=== PATIENT | female | born 1935 | race Caucasian/White ===

== ENCOUNTER 2017-07-04 16:59 | Emergency (ER) | payer BC | END 2017-07-04 20:50 | disposition home or self-care (01) | LOC: FTE 16:59 | DX: S46.912A Strain of unspecified muscle, fascia and tendon at shoulder and upper arm level, left arm, initial encounter (principal); X58.XXXA Exposure to other specified factors, initial encounter; Y92.9 Unspecified place or not applicable; Z79.01 Long term (current) use of anticoagulants | CPT/HCPCS: 99282 ==

== ENCOUNTER 2017-11-02 13:24 | Emergency (ER) | payer BC | END 2017-11-02 14:41 | disposition home or self-care (01) | LOC: E/R 13:24 | DX: M54.5 Low back pain (principal); Z79.01 Long term (current) use of anticoagulants | CPT/HCPCS: 72100; 99283-25 ==

== ENCOUNTER 2017-12-16 12:40 | Inpatient (IN) | payer BC ==
[2017-12-16] MEDS ORDERED: morphine 4 MG/ML VIAL IV (13:37)
[2017-12-16 13:49] LABS: ADD MAN DIFF? NO
[2017-12-16] MEDS: ONDANSETRON 4 MG INJ IV (13:50)
[2017-12-16] MEDS: HYDROmorphONE 0.5 MG/0.5 ML SYG IV (13:50)
[2017-12-16 13:55] LABS: WHITE BLOOD COUNT 12.7 10^3/ul (4.8-10.8)
[2017-12-16 13:55] LABS: BASOPHIL # 0.1 10^3/ul (0.0-0.1); BASOPHILS % 0.6 % (0.0-2.0); EOSINOPHILS # 0.1 10^3/ul (0.0-0.5); EOSINOPHILS % 0.6 % (0.0-7.0); HEMATOCRIT 35.9 % (37.0-47.0); HEMOGLOBIN 11.7 g/dl (12.0-16.0); LYMPHOCYTES # 1.4 10^3/ul (0.8-2.9); LYMPHOCYTES % 10.9 % (15.0-51.0); MEAN CORPUSCULAR HEMOGLOBIN 31.7 pg (29.0-33.0); MEAN CORPUSCULAR HGB CONC 32.6 g/dl (32.0-37.0); MEAN CORPUSCULAR VOLUME 97.3 fl (82.0-101.0); MEAN PLATELET VOLUME 10.2 fl (7.4-10.4); MONOCYTE # 1.1 10^3/ul (0.3-0.9); MONOCYTES % 8.7 % (0.0-11.0); NEUTROPHILS % 78.7 % (39.0-77.0); PLATELET COUNT 263 10^3/UL (140-415); RED BLOOD COUNT 3.69 10^6/ul (4.20-5.40); RED CELL DISTRIBUTION WIDTH 13.2 % (11.5-14.5)
[2017-12-16 14:11] LABS: ANION GAP 12 (8-16); BLOOD UREA NITROGEN 23 mg/dl (7-20); CALCIUM 8.7 mg/dl (8.4-10.2); CARBON DIOXIDE 27 mmol/L (21-31); CHLORIDE 101 mmol/L (97-110); CREATININE 0.62 mg/dl (0.44-1.00); GLUCOSE 118 mg/dl (70-220); POTASSIUM 3.8 mmol/L (3.5-5.1); SODIUM 136 mmol/L (135-144)
[2017-12-16] MEDS: DILTIAZEM 25 MG INJ IV (14:13)
[2017-12-16 14:23] LABS: TROPONIN-I < 0.010 ng/ml (0.000-0.120)
[2017-12-16] MEDS ORDERED: ONDANSETRON 4 MG INJ IV (14:30)
[2017-12-16] MEDS ORDERED: ACETAMINOPHEN 325 MG TAB PO ×2 (14:30→18:00)
[2017-12-16] MEDS ORDERED: DILTIAZEM 25 MG INJ IV (18:00)
[2017-12-16] MEDS ORDERED: morphine 2 MG INJ IV (18:00)
[2017-12-16 19:03] LABS: CREATINE KINASE 708 IU/L (23-200)
[2017-12-16 19:05] LABS: INR 1.96; PROTIME 22.8 Sec (11.9-14.9); PT RATIO 1.8
[2017-12-16 19:16] LABS: CK INDEX 0.9; CK-MB 6.29 ng/ml (0.0-2.4); TROPONIN-I < 0.010 ng/ml (0.000-0.120)
[2017-12-17 01:44] LABS: CREATINE KINASE 396 IU/L (23-200)
[2017-12-17 01:56] LABS: CK-MB 3.88 ng/ml (0.0-2.4); TROPONIN-I < 0.010 ng/ml (0.000-0.120)
[2017-12-17 07:28] LABS: ADD MAN DIFF? NO
[2017-12-17 07:35] LABS: WHITE BLOOD COUNT 10.7 10^3/ul (4.8-10.8)
[2017-12-17 07:35] LABS: BASOPHILS % 0.4 % (0.0-2.0); EOSINOPHILS # 0.2 10^3/ul (0.0-0.5); HEMATOCRIT 33.3 % (37.0-47.0); HEMOGLOBIN 10.6 g/dl (12.0-16.0); LYMPHOCYTES # 1.6 10^3/ul (0.8-2.9); LYMPHOCYTES % 14.7 % (15.0-51.0); MEAN CORPUSCULAR HEMOGLOBIN 31.2 pg (29.0-33.0); MEAN CORPUSCULAR HGB CONC 31.8 g/dl (32.0-37.0); MEAN CORPUSCULAR VOLUME 97.9 fl (82.0-101.0); MEAN PLATELET VOLUME 10.3 fl (7.4-10.4); MONOCYTES % 9.5 % (0.0-11.0); NEUTROPHIL # 7.8 10^3/ul (1.6-7.5); NEUTROPHILS % 72.9 % (39.0-77.0); PLATELET COUNT 278 10^3/UL (140-415); RED CELL DISTRIBUTION WIDTH 13.3 % (11.5-14.5)
[2017-12-17 07:51] LABS: ANION GAP 8 (8-16); BLOOD UREA NITROGEN 20 mg/dl (7-20); CALCIUM 8.3 mg/dl (8.4-10.2); CARBON DIOXIDE 29 mmol/L (21-31); CHLORIDE 102 mmol/L (97-110); CREATININE 0.56 mg/dl (0.44-1.00); GLUCOSE 120 mg/dl (70-220); POTASSIUM 4.4 mmol/L (3.5-5.1); SODIUM 135 mmol/L (135-144)
[2017-12-17 08:01] LABS: INR 2.14; PROTIME 24.4 Sec (11.9-14.9); PT RATIO 1.9
[2017-12-17 08:02] LABS: PARTIAL THROMBOPLASTIN TIME 42.6 Sec (25.0-35.0)
[2017-12-17 08:51] LABS: THYROID STIMULATING HORMONE 0.527 MIU/L (0.465-4.680)
[2017-12-17] MEDS ORDERED: DILTIAZEM (CD) 240 MG CAP PO (09:00)
[2017-12-17] MEDS: ESTRADIOL 1 MG TAB PO (09:04)
[2017-12-17] MEDS: DILTIAZEM (CD) 240 MG CAP PO (09:05)
[2017-12-17] MEDS: DIAZEPAM 5 MG TAB PO (09:05)
[2017-12-17] MEDS: WARFARIN 3 MG TAB PO (17:11)
[2017-12-17] MEDS: DILTIAZEM (CD) 120 MG CAP PO (20:39)
[2017-12-17] MEDS: [UNRECOGNIZED DRUG - OTHER] BOTH EYES (23:11)
[2017-12-17] MEDS: TIMOLOL 0.5% BOTH EYES (23:11)
[2017-12-17] MEDS: DORZOLAMIDE BOTH EYES (23:11)
[2017-12-18 08:03] LABS: ADD MAN DIFF? NO
[2017-12-18 08:05] LABS: BASOPHILS % 0.3 % (0.0-2.0); EOSINOPHILS # 0.1 10^3/ul (0.0-0.5); EOSINOPHILS % 0.6 % (0.0-7.0); HEMATOCRIT 35.3 % (37.0-47.0); HEMOGLOBIN 11.1 g/dl (12.0-16.0); LYMPHOCYTES % 8.6 % (15.0-51.0); MEAN CORPUSCULAR HEMOGLOBIN 30.4 pg (29.0-33.0); MEAN CORPUSCULAR HGB CONC 31.4 g/dl (32.0-37.0); MEAN CORPUSCULAR VOLUME 96.7 fl (82.0-101.0); MEAN PLATELET VOLUME 11.5 fl (7.4-10.4); MONOCYTE # 1.3 10^3/ul (0.3-0.9); MONOCYTES % 10.8 % (0.0-11.0); NEUTROPHIL # 9.4 10^3/ul (1.6-7.5); NEUTROPHILS % 79.2 % (39.0-77.0); PLATELET COUNT 232 10^3/UL (140-415); RED BLOOD COUNT 3.65 10^6/ul (4.20-5.40); RED CELL DISTRIBUTION WIDTH 13.1 % (11.5-14.5)
[2017-12-18 08:05] LABS: WHITE BLOOD COUNT 11.9 10^3/ul (4.8-10.8)
[2017-12-18 08:25] LABS: INR 1.93; IRON 12 ug/dl (35-150); PROTIME 22.5 Sec (11.9-14.9); PT RATIO 1.8
[2017-12-18 08:29] LABS: ALANINE AMINOTRANSFERASE 36 IU/L (13-69); ALKALINE PHOSPHATASE 83 IU/L (42-121); ANION GAP 11 (8-16); ASPARTATE AMINO TRANSFERASE 31 IU/L (15-46); BILIRUBIN,INDIRECT 0.8 mg/dl (0-1.1); BILIRUBIN,TOTAL 0.8 mg/dl (0.2-1.3); BLOOD UREA NITROGEN 15 mg/dl (7-20); CALCIUM 8.3 mg/dl (8.4-10.2); CARBON DIOXIDE 31 mmol/L (21-31); CHLORIDE 98 mmol/L (97-110); CREATININE 0.57 mg/dl (0.44-1.00); GLUCOSE 119 mg/dl (70-220); POTASSIUM 4.5 mmol/L (3.5-5.1); SODIUM 135 mmol/L (135-144); TOTAL PROTEIN 6.3 g/dl (6.1-8.1)
[2017-12-18 08:35] LABS: % IRON SATURATION 5 % SAT (22-52); TOTAL IRON BINDING CAPACITY 259 ug/dl (241-421)
[2017-12-18] MEDS: DORZOLAMIDE BOTH EYES ×2 (08:57→20:53)
[2017-12-18] MEDS: TIMOLOL 0.5% BOTH EYES ×2 (08:57→20:53)
[2017-12-18] MEDS: [UNRECOGNIZED DRUG - OTHER] BOTH EYES ×2 (08:57→20:53)
[2017-12-18] MEDS: DEXAMETHASONE 0.1% 5 ML OPH RIGHT EYE ×2 (09:00→20:53)
[2017-12-18] MEDS ORDERED: DORZOLAMIDE/TIMOLOL/PF 0.2 ML DROPERETTE BOTH EYES ×2 (09:00)
[2017-12-18] MEDS ORDERED: PREDNISOLONE ACET 0.12% 5 ML OPH RIGHT EYE (09:00)
[2017-12-18] MEDS: DILTIAZEM (CD) 240 MG CAP PO (09:07)
[2017-12-18] MEDS: ESTRADIOL 1 MG TAB PO (09:07)
[2017-12-18 16:27] LABS: FOLATE > 20.0 ng/ml (2.8-20.0)
[2017-12-18] MEDS: WARFARIN 2 MG TAB PO (17:29)
[2017-12-18] MEDS: DIAZEPAM 5 MG TAB PO (20:51)
[2017-12-18] MEDS: DILTIAZEM (CD) 120 MG CAP PO (20:52)
[2017-12-18] MEDS ORDERED: LATANOPROST 0.005% 2.5 ML OPH LEFT EYE (21:00)
[2017-12-19 08:10] LABS: ADD MAN DIFF? NO
[2017-12-19 08:14] LABS: BASOPHIL # 0.1 10^3/ul (0.0-0.1); BASOPHILS % 0.4 % (0.0-2.0); EOSINOPHILS # 0.2 10^3/ul (0.0-0.5); EOSINOPHILS % 1.2 % (0.0-7.0); HEMATOCRIT 35.7 % (37.0-47.0); HEMOGLOBIN 11.4 g/dl (12.0-16.0); LYMPHOCYTES # 1.1 10^3/ul (0.8-2.9); MEAN CORPUSCULAR HEMOGLOBIN 30.8 pg (29.0-33.0); MEAN CORPUSCULAR HGB CONC 31.9 g/dl (32.0-37.0); MEAN CORPUSCULAR VOLUME 96.5 fl (82.0-101.0); MEAN PLATELET VOLUME 10.4 fl (7.4-10.4); MONOCYTE # 1.4 10^3/ul (0.3-0.9); NEUTROPHIL # 11.1 10^3/ul (1.6-7.5); NEUTROPHILS % 79.5 % (39.0-77.0); PLATELET COUNT 325 10^3/UL (140-415); RED CELL DISTRIBUTION WIDTH 12.8 % (11.5-14.5)
[2017-12-19 08:14] LABS: WHITE BLOOD COUNT 13.9 10^3/ul (4.8-10.8)
[2017-12-19 08:31] LABS: ANION GAP 9 (8-16); BLOOD UREA NITROGEN 17 mg/dl (7-20); CALCIUM 8.2 mg/dl (8.4-10.2); CARBON DIOXIDE 32 mmol/L (21-31); CHLORIDE 97 mmol/L (97-110); CREATININE 0.64 mg/dl (0.44-1.00); GLUCOSE 123 mg/dl (70-220); POTASSIUM 4.1 mmol/L (3.5-5.1); SODIUM 134 mmol/L (135-144)
[2017-12-19 08:33] LABS: INR 2.39; PROTIME 26.7 Sec (11.9-14.9); PT RATIO 2.1
[2017-12-19] MEDS: ESTRADIOL 1 MG TAB PO (08:47)
[2017-12-19] MEDS: DILTIAZEM (CD) 240 MG CAP PO (08:49)
[2017-12-19] MEDS: [UNRECOGNIZED DRUG - OTHER] BOTH EYES ×2 (08:50→21:12)
[2017-12-19] MEDS: TIMOLOL 0.5% BOTH EYES ×2 (08:50→21:12)
[2017-12-19] MEDS: DORZOLAMIDE BOTH EYES ×2 (08:50→21:12)
[2017-12-19] MEDS: DEXAMETHASONE 0.1% 5 ML OPH RIGHT EYE ×2 (08:57→21:12)
[2017-12-19] MEDS: CEFTRIAXONE 1 GM/50 ML (PMX) 50 ML IVPB (16:21)
[2017-12-19] MEDS: D5W-0.45 NACL + KCL 10 MEQ 1,000 ML IV (16:21)
[2017-12-19] MEDS: AZITHROMYCIN 500MG/NS (PMX) 250 ML IVPB (17:13)
[2017-12-19] MEDS: WARFARIN 3 MG TAB PO (17:15)
[2017-12-19] MEDS: DILTIAZEM (CD) 120 MG CAP PO (21:00)
[2017-12-19] MEDS: DIAZEPAM 5 MG TAB PO (21:14)
[2017-12-20 07:13] LABS: ADD UMIC NO; UR ASCORBIC ACID NEGATIVE (NEGATIVE); UR BACTERIA FEW /HPF (NONE SEEN); UR BILIRUBIN (Dip) NEGATIVE (NEGATIVE); UR BLOOD (Dip) NEGATIVE (NEGATIVE); UR CLARITY SLIGHTLY CLOUDY (CLEAR); UR COLOR YELLOW (YELLOW); UR GLUCOSE (Dip) NEGATIVE (NEGATIVE); UR KETONES (Dip) NEGATIVE (NEGATIVE); UR LEUKOCYTE ESTERASE (Dip) NEGATIVE Leu/ul (NEGATIVE); UR MUCUS FEW /HPF (NONE SEEN); UR NITRITE (Dip) NEGATIVE (NEGATIVE); UR RBC 5 /HPF (0-5); UR SPECIFIC GRAVITY (Dip) 1.018 (1.003-1.030); UR SQUAMOUS EPITHELIAL CELL FEW /HPF (FEW); UR TOTAL PROTEIN (Dip) NEGATIVE (NEGATIVE); UR UROBILINOGEN (Dip) 1+ mg/dL (NEGATIVE); UR WBC 1 /HPF (0-5)
[2017-12-20] MEDS: ESTRADIOL 1 MG TAB PO (08:47)
[2017-12-20] MEDS: DILTIAZEM (CD) 240 MG CAP PO (08:47)
[2017-12-20] MEDS: TIMOLOL 0.5% BOTH EYES ×2 (08:47→21:00)
[2017-12-20] MEDS: DORZOLAMIDE BOTH EYES ×2 (08:47→21:00)
[2017-12-20] MEDS: [UNRECOGNIZED DRUG - OTHER] BOTH EYES ×2 (08:47→21:00)
[2017-12-20] MEDS: DEXAMETHASONE 0.1% 5 ML OPH RIGHT EYE ×2 (08:49→22:17)
[2017-12-20 10:02] LABS: ADD MAN DIFF? NO
[2017-12-20 10:05] LABS: BASOPHILS % 0.3 % (0.0-2.0); EOSINOPHILS # 0.2 10^3/ul (0.0-0.5); EOSINOPHILS % 1.5 % (0.0-7.0); HEMATOCRIT 34.5 % (37.0-47.0); HEMOGLOBIN 11.2 g/dl (12.0-16.0); LYMPHOCYTES # 0.8 10^3/ul (0.8-2.9); LYMPHOCYTES % 6.5 % (15.0-51.0); MEAN CORPUSCULAR HEMOGLOBIN 31.3 pg (29.0-33.0); MEAN CORPUSCULAR HGB CONC 32.5 g/dl (32.0-37.0); MEAN CORPUSCULAR VOLUME 96.4 fl (82.0-101.0); MEAN PLATELET VOLUME 10.1 fl (7.4-10.4); MONOCYTE # 0.9 10^3/ul (0.3-0.9); MONOCYTES % 7.6 % (0.0-11.0); NEUTROPHIL # 9.6 10^3/ul (1.6-7.5); NEUTROPHILS % 83.3 % (39.0-77.0); PLATELET COUNT 353 10^3/UL (140-415); RED BLOOD COUNT 3.58 10^6/ul (4.20-5.40); RED CELL DISTRIBUTION WIDTH 12.8 % (11.5-14.5)
[2017-12-20 10:05] LABS: WHITE BLOOD COUNT 11.5 10^3/ul (4.8-10.8)
[2017-12-20 10:21] LABS: INR 3.27; PROTIME 34.3 Sec (11.9-14.9); PT RATIO 2.7
[2017-12-20 10:33] LABS: ANION GAP 9 (8-16); BLOOD UREA NITROGEN 17 mg/dl (7-20); CARBON DIOXIDE 30 mmol/L (21-31); CHLORIDE 99 mmol/L (97-110); CREATININE 0.64 mg/dl (0.44-1.00); GLUCOSE 159 mg/dl (70-220); POTASSIUM 4.1 mmol/L (3.5-5.1); SODIUM 134 mmol/L (135-144)
[2017-12-20] MEDS: POTASSIUM CHLORIDE 10 MEQ in DEXTROSE 5%-0.9% NACL 1,000 ML IV (14:54)
[2017-12-20] MEDS: AZITHROMYCIN 500MG/NS (PMX) 250 ML IVPB (15:26)
[2017-12-20] MEDS: CEFTRIAXONE 1 GM/50 ML (PMX) 50 ML IVPB (16:21)
[2017-12-20] MEDS: DIAZEPAM 5 MG TAB PO (22:16)
[2017-12-20] MEDS: BETHANECHOL 10 MG TAB PO (22:17)
[2017-12-20] MEDS: DILTIAZEM (CD) 120 MG CAP PO (22:17)
[2017-12-20] MEDS: POLYETHYLENE GLYCOL 17 GM PACKET PO (22:17)
[2017-12-21 07:58] LABS: ADD MAN DIFF? NO
[2017-12-21 08:05] LABS: BASOPHIL # 0.1 10^3/ul (0.0-0.1); BASOPHILS % 0.6 % (0.0-2.0); EOSINOPHILS # 0.3 10^3/ul (0.0-0.5); EOSINOPHILS % 2.8 % (0.0-7.0); HEMATOCRIT 35.3 % (37.0-47.0); HEMOGLOBIN 11.3 g/dl (12.0-16.0); MEAN CORPUSCULAR HEMOGLOBIN 31.1 pg (29.0-33.0); MEAN CORPUSCULAR VOLUME 97.2 fl (82.0-101.0); MEAN PLATELET VOLUME 10.3 fl (7.4-10.4); MONOCYTE # 1.2 10^3/ul (0.3-0.9); NEUTROPHIL # 8.2 10^3/ul (1.6-7.5); NEUTROPHILS % 75.8 % (39.0-77.0); PLATELET COUNT 378 10^3/UL (140-415); RED BLOOD COUNT 3.63 10^6/ul (4.20-5.40)
[2017-12-21 08:05] LABS: WHITE BLOOD COUNT 10.9 10^3/ul (4.8-10.8)
[2017-12-21 08:25] LABS: PROTIME 29.4 Sec (11.9-14.9); PT RATIO 2.3
[2017-12-21 08:44] LABS: ANION GAP 7 (8-16); BLOOD UREA NITROGEN 15 mg/dl (7-20); CALCIUM 8.1 mg/dl (8.4-10.2); CARBON DIOXIDE 31 mmol/L (21-31); CHLORIDE 103 mmol/L (97-110); CREATININE 0.57 mg/dl (0.44-1.00); GLUCOSE 123 mg/dl (70-220); POTASSIUM 4.1 mmol/L (3.5-5.1); SODIUM 137 mmol/L (135-144)
[2017-12-21] MEDS: DEXAMETHASONE 0.1% 5 ML OPH RIGHT EYE ×3 (09:00→21:03)
[2017-12-21] MEDS: DILTIAZEM (CD) 240 MG CAP PO (09:07)
[2017-12-21] MEDS: ESTRADIOL 1 MG TAB PO (09:07)
[2017-12-21] MEDS: BETHANECHOL 10 MG TAB PO ×3 (09:07→21:02)
[2017-12-21] MEDS: DORZOLAMIDE BOTH EYES ×2 (09:08→21:01)
[2017-12-21] MEDS: TIMOLOL 0.5% BOTH EYES ×2 (09:08→21:01)
[2017-12-21] MEDS: [UNRECOGNIZED DRUG - OTHER] BOTH EYES ×2 (09:08→21:01)
[2017-12-21] MEDS: AZITHROMYCIN 500MG/NS (PMX) 250 ML IVPB (15:27)
[2017-12-21] MEDS: CEFTRIAXONE 1 GM/50 ML (PMX) 50 ML IVPB (16:44)
[2017-12-21] MEDS: POLYETHYLENE GLYCOL 17 GM PACKET PO (18:40)
[2017-12-21] MEDS: WARFARIN 3 MG TAB PO (18:40)
[2017-12-21] MEDS: DOCUSATE SODIUM 100 MG CAP PO (21:01)
[2017-12-21] MEDS: DILTIAZEM (CD) 120 MG CAP PO (21:02)
[2017-12-21] MEDS: DIAZEPAM 5 MG TAB PO (21:03)
[2017-12-22 08:30] LABS: ADD MAN DIFF? NO
[2017-12-22 08:33] LABS: WHITE BLOOD COUNT 10.5 10^3/ul (4.8-10.8)
[2017-12-22 08:33] LABS: BASOPHIL # 0.1 10^3/ul (0.0-0.1); BASOPHILS % 0.6 % (0.0-2.0); EOSINOPHILS # 0.2 10^3/ul (0.0-0.5); EOSINOPHILS % 2.2 % (0.0-7.0); HEMATOCRIT 36.8 % (37.0-47.0); HEMOGLOBIN 11.6 g/dl (12.0-16.0); LYMPHOCYTES # 1.1 10^3/ul (0.8-2.9); LYMPHOCYTES % 10.5 % (15.0-51.0); MEAN CORPUSCULAR HEMOGLOBIN 30.7 pg (29.0-33.0); MEAN CORPUSCULAR HGB CONC 31.5 g/dl (32.0-37.0); MEAN CORPUSCULAR VOLUME 97.4 fl (82.0-101.0); MEAN PLATELET VOLUME 9.9 fl (7.4-10.4); MONOCYTE # 1.1 10^3/ul (0.3-0.9); MONOCYTES % 10.7 % (0.0-11.0); NEUTROPHIL # 7.8 10^3/ul (1.6-7.5); NEUTROPHILS % 74.8 % (39.0-77.0); PLATELET COUNT 391 10^3/UL (140-415); RED BLOOD COUNT 3.78 10^6/ul (4.20-5.40); RED CELL DISTRIBUTION WIDTH 13.1 % (11.5-14.5)
[2017-12-22] MEDS: DOCUSATE SODIUM 100 MG CAP PO (08:47)
[2017-12-22] MEDS: BETHANECHOL 10 MG TAB PO ×3 (08:47→22:12)
[2017-12-22] MEDS: DEXAMETHASONE 0.1% 5 ML OPH RIGHT EYE ×3 (08:47→22:13)
[2017-12-22] MEDS: DILTIAZEM (CD) 240 MG CAP PO ×2 (08:48→22:12)
[2017-12-22] MEDS: DORZOLAMIDE BOTH EYES ×2 (08:48→22:11)
[2017-12-22] MEDS: TIMOLOL 0.5% BOTH EYES ×2 (08:48→22:11)
[2017-12-22] MEDS: [UNRECOGNIZED DRUG - OTHER] BOTH EYES ×2 (08:48→22:11)
[2017-12-22 08:57] LABS: ANION GAP 7 (8-16); BLOOD UREA NITROGEN 16 mg/dl (7-20); CALCIUM 8.2 mg/dl (8.4-10.2); CARBON DIOXIDE 29 mmol/L (21-31); CHLORIDE 103 mmol/L (97-110); CREATININE 0.55 mg/dl (0.44-1.00); GLUCOSE 123 mg/dl (70-220); POTASSIUM 3.8 mmol/L (3.5-5.1); SODIUM 135 mmol/L (135-144)
[2017-12-22] MEDS: ESTRADIOL 1 MG TAB PO (09:00)
[2017-12-22 09:10] LABS: INR 2.86; PROTIME 30.8 Sec (11.9-14.9); PT RATIO 2.4
[2017-12-22] MEDS: BARIUM SULFATE 135 ML (E-Z HD) PO (12:12)
[2017-12-22] MEDS: AZITHROMYCIN 500MG/NS (PMX) 250 ML IVPB (15:25)
[2017-12-22] MEDS: CEFTRIAXONE 1 GM/50 ML (PMX) 50 ML IVPB (16:28)
[2017-12-22] MEDS: WARFARIN 2 MG TAB PO (18:08)
[2017-12-22] MEDS ORDERED: morphine LIQ (10 MG/5 ML) CUP PO (20:00)
[2017-12-22] MEDS: DIAZEPAM 5 MG TAB PO (22:12)
[2017-12-22 23:44] LABS: OCCULT BLOOD STOOL NEGATIVE (NEGATIVE)
[2017-12-23 06:20] LABS: ADD MAN DIFF? NO
[2017-12-23 06:30] LABS: BASOPHIL # 0.1 10^3/ul (0.0-0.1); BASOPHILS % 0.6 % (0.0-2.0); EOSINOPHILS # 0.3 10^3/ul (0.0-0.5); EOSINOPHILS % 2.8 % (0.0-7.0); HEMATOCRIT 34.9 % (37.0-47.0); HEMOGLOBIN 11.2 g/dl (12.0-16.0); LYMPHOCYTES # 1.6 10^3/ul (0.8-2.9); LYMPHOCYTES % 15.6 % (15.0-51.0); MEAN CORPUSCULAR HEMOGLOBIN 30.8 pg (29.0-33.0); MEAN CORPUSCULAR HGB CONC 32.1 g/dl (32.0-37.0); MEAN CORPUSCULAR VOLUME 95.9 fl (82.0-101.0); MEAN PLATELET VOLUME 10.3 fl (7.4-10.4); MONOCYTES % 10.3 % (0.0-11.0); NEUTROPHILS % 69.4 % (39.0-77.0); PLATELET COUNT 431 10^3/UL (140-415); RED BLOOD COUNT 3.64 10^6/ul (4.20-5.40)
[2017-12-23 07:10] LABS: ANION GAP 7 (8-16); BLOOD UREA NITROGEN 17 mg/dl (7-20); CALCIUM 8.1 mg/dl (8.4-10.2); CARBON DIOXIDE 29 mmol/L (21-31); CHLORIDE 104 mmol/L (97-110); CREATININE 0.56 mg/dl (0.44-1.00); GLUCOSE 115 mg/dl (70-220); POTASSIUM 3.7 mmol/L (3.5-5.1); SODIUM 136 mmol/L (135-144)
[2017-12-23] MEDS: BETHANECHOL 10 MG TAB PO ×3 (09:19→21:36)
[2017-12-23] MEDS: DOCUSATE SODIUM 100 MG CAP PO (09:19)
[2017-12-23] MEDS: DILTIAZEM (CD) 240 MG CAP PO ×2 (09:19→21:37)
[2017-12-23] MEDS: DEXAMETHASONE 0.1% 5 ML OPH RIGHT EYE ×2 (09:20→21:00)
[2017-12-23] MEDS: ESTRADIOL 1 MG TAB PO (09:20)
[2017-12-23] MEDS: [UNRECOGNIZED DRUG - OTHER] BOTH EYES ×2 (09:21→21:35)
[2017-12-23] MEDS: TIMOLOL 0.5% BOTH EYES ×2 (09:21→21:35)
[2017-12-23] MEDS: DORZOLAMIDE BOTH EYES ×2 (09:21→21:35)
[2017-12-23 09:30] LABS: INR 2.66; PROTIME 29.1 Sec (11.9-14.9); PT RATIO 2.3
[2017-12-23] MEDS: WARFARIN 2.5 MG TAB PO (15:29)
[2017-12-23] MEDS: AZITHROMYCIN 500MG/NS (PMX) 250 ML IVPB (15:30)
[2017-12-23] MEDS: CEFTRIAXONE 1 GM/50 ML (PMX) 50 ML IVPB (16:40)
[2017-12-23 19:39] LABS: OCCULT BLOOD STOOL NEGATIVE (NEGATIVE)
[2017-12-23 19:39] LABS: OCCULT BLOOD STOOL NEGATIVE (NEGATIVE)
[2017-12-23] MEDS: DIAZEPAM 5 MG TAB PO (21:37)
[2017-12-24] MEDS: ESTRADIOL 1 MG TAB PO (08:56)
[2017-12-24] MEDS: BETHANECHOL 10 MG TAB PO ×3 (08:56→20:49)
[2017-12-24] MEDS: TIMOLOL 0.5% BOTH EYES ×2 (08:57→21:37)
[2017-12-24] MEDS: DOCUSATE SODIUM 100 MG CAP PO (08:57)
[2017-12-24] MEDS: DORZOLAMIDE BOTH EYES ×2 (08:57→21:37)
[2017-12-24] MEDS: DILTIAZEM (CD) 240 MG CAP PO ×2 (08:57→20:49)
[2017-12-24] MEDS: [UNRECOGNIZED DRUG - OTHER] BOTH EYES ×2 (08:57→21:37)
[2017-12-24] MEDS: DEXAMETHASONE 0.1% 5 ML OPH RIGHT EYE ×2 (08:58→20:50)
[2017-12-24 10:41] LABS: INR 2.98; PROTIME 31.9 Sec (11.9-14.9); PT RATIO 2.5
[2017-12-24] MEDS: AZITHROMYCIN 500MG/NS (PMX) 250 ML IVPB (16:12)
[2017-12-24] MEDS: WARFARIN 2 MG TAB PO (18:03)
[2017-12-24] MEDS: CEFTRIAXONE 1 GM/50 ML (PMX) 50 ML IVPB (18:03)
[2017-12-24] MEDS: DIAZEPAM 5 MG TAB PO (20:49)
[2017-12-25 06:49] LABS: ADD MAN DIFF? NO
[2017-12-25 06:54] LABS: BASOPHIL # 0.1 10^3/ul (0.0-0.1); BASOPHILS % 0.6 % (0.0-2.0); EOSINOPHILS # 0.2 10^3/ul (0.0-0.5); EOSINOPHILS % 2.3 % (0.0-7.0); HEMATOCRIT 35.4 % (37.0-47.0); HEMOGLOBIN 11.2 g/dl (12.0-16.0); LYMPHOCYTES # 1.8 10^3/ul (0.8-2.9); LYMPHOCYTES % 18.6 % (15.0-51.0); MEAN CORPUSCULAR HEMOGLOBIN 30.7 pg (29.0-33.0); MEAN CORPUSCULAR HGB CONC 31.6 g/dl (32.0-37.0); MEAN PLATELET VOLUME 9.8 fl (7.4-10.4); MONOCYTES % 10.7 % (0.0-11.0); NEUTROPHIL # 6.4 10^3/ul (1.6-7.5); NEUTROPHILS % 66.7 % (39.0-77.0); PLATELET COUNT 450 10^3/UL (140-415); RED BLOOD COUNT 3.65 10^6/ul (4.20-5.40); RED CELL DISTRIBUTION WIDTH 13.1 % (11.5-14.5)
[2017-12-25 06:54] LABS: WHITE BLOOD COUNT 9.6 10^3/ul (4.8-10.8)
[2017-12-25 07:32] LABS: ANION GAP 8 (8-16); BLOOD UREA NITROGEN 18 mg/dl (7-20); CALCIUM 8.4 mg/dl (8.4-10.2); CARBON DIOXIDE 29 mmol/L (21-31); CHLORIDE 105 mmol/L (97-110); CREATININE 0.62 mg/dl (0.44-1.00); GLUCOSE 112 mg/dl (70-220); SODIUM 138 mmol/L (135-144)
[2017-12-25] MEDS: BETHANECHOL 10 MG TAB PO ×3 (08:21→20:24)
[2017-12-25] MEDS: DEXAMETHASONE 0.1% 5 ML OPH RIGHT EYE ×2 (08:21→20:44)
[2017-12-25] MEDS: ESTRADIOL 1 MG TAB PO (08:21)
[2017-12-25] MEDS: DOCUSATE SODIUM 100 MG CAP PO (08:22)
[2017-12-25] MEDS: [UNRECOGNIZED DRUG - OTHER] BOTH EYES ×2 (08:22→20:40)
[2017-12-25] MEDS: DILTIAZEM (CD) 240 MG CAP PO ×2 (08:22→20:26)
[2017-12-25] MEDS: TIMOLOL 0.5% BOTH EYES ×2 (08:22→20:40)
[2017-12-25] MEDS: DORZOLAMIDE BOTH EYES ×2 (08:22→20:40)
[2017-12-25 11:54] LABS: INR 3.02; PROTIME 32.2 Sec (11.9-14.9); PT RATIO 2.5
[2017-12-25] MEDS: CEFTRIAXONE 1 GM/50 ML (PMX) 50 ML IVPB (15:42)
[2017-12-25] MEDS: AZITHROMYCIN 500MG/NS (PMX) 250 ML IVPB (16:28)
[2017-12-25] MEDS: DIAZEPAM 5 MG TAB PO (20:44)
[2017-12-26 06:24] LABS: ADD MAN DIFF? NO
[2017-12-26 06:35] LABS: BASOPHIL # 0.1 10^3/ul (0.0-0.1); BASOPHILS % 0.6 % (0.0-2.0); EOSINOPHILS # 0.2 10^3/ul (0.0-0.5); EOSINOPHILS % 1.8 % (0.0-7.0); HEMATOCRIT 34.8 % (37.0-47.0); HEMOGLOBIN 11.4 g/dl (12.0-16.0); LYMPHOCYTES # 1.5 10^3/ul (0.8-2.9); LYMPHOCYTES % 13.7 % (15.0-51.0); MEAN CORPUSCULAR HEMOGLOBIN 31.8 pg (29.0-33.0); MEAN CORPUSCULAR HGB CONC 32.8 g/dl (32.0-37.0); MEAN CORPUSCULAR VOLUME 96.9 fl (82.0-101.0); MEAN PLATELET VOLUME 10.2 fl (7.4-10.4); PLATELET COUNT 481 10^3/UL (140-415); RED BLOOD COUNT 3.59 10^6/ul (4.20-5.40); RED CELL DISTRIBUTION WIDTH 13.1 % (11.5-14.5)
[2017-12-26 06:35] LABS: WHITE BLOOD COUNT 10.8 10^3/ul (4.8-10.8)
[2017-12-26 06:57] LABS: INR 2.15; PROTIME 24.5 Sec (11.9-14.9); PT RATIO 1.9
[2017-12-26 07:27] LABS: ANION GAP 9 (8-16); BLOOD UREA NITROGEN 16 mg/dl (7-20); CALCIUM 8.2 mg/dl (8.4-10.2); CARBON DIOXIDE 29 mmol/L (21-31); CHLORIDE 105 mmol/L (97-110); CREATININE 0.57 mg/dl (0.44-1.00); GLUCOSE 121 mg/dl (70-220); MAGNESIUM 1.9 mg/dl (1.7-2.5); POTASSIUM 3.9 mmol/L (3.5-5.1); SODIUM 139 mmol/L (135-144)
[2017-12-26 08:29] LABS: CARCINOEMBRYONIC ANTIGEN 1.9 ng/ml (0.0-5.0)
[2017-12-26] MEDS: DOCUSATE SODIUM 100 MG CAP PO (08:55)
[2017-12-26] MEDS: ESTRADIOL 1 MG TAB PO (08:55)
[2017-12-26] MEDS: BETHANECHOL 10 MG TAB PO ×3 (08:55→21:16)
[2017-12-26] MEDS: DEXAMETHASONE 0.1% 5 ML OPH RIGHT EYE ×2 (08:58→20:51)
[2017-12-26] MEDS: DILTIAZEM (CD) 240 MG CAP PO ×2 (08:58→21:16)
[2017-12-26] MEDS: DORZOLAMIDE BOTH EYES ×2 (09:02→21:17)
[2017-12-26] MEDS: TIMOLOL 0.5% BOTH EYES ×2 (09:02→21:17)
[2017-12-26] MEDS: [UNRECOGNIZED DRUG - OTHER] BOTH EYES ×2 (09:02→21:17)
[2017-12-26] MEDS: CEFTRIAXONE 1 GM/50 ML (PMX) 50 ML IVPB (15:07)
[2017-12-26] MEDS: AZITHROMYCIN 500MG/NS (PMX) 250 ML IVPB (15:59)
[2017-12-26] MEDS: WARFARIN 2 MG TAB PO (18:34)
[2017-12-26] MEDS: DIAZEPAM 5 MG TAB PO (21:00)
[2017-12-27 06:00] LABS: ADD MAN DIFF? NO
[2017-12-27 06:24] LABS: BASOPHIL # 0.1 10^3/ul (0.0-0.1); BASOPHILS % 0.6 % (0.0-2.0); EOSINOPHILS # 0.2 10^3/ul (0.0-0.5); EOSINOPHILS % 1.7 % (0.0-7.0); HEMOGLOBIN 10.6 g/dl (12.0-16.0); LYMPHOCYTES # 1.7 10^3/ul (0.8-2.9); LYMPHOCYTES % 14.1 % (15.0-51.0); MEAN CORPUSCULAR HEMOGLOBIN 30.8 pg (29.0-33.0); MEAN CORPUSCULAR HGB CONC 32.1 g/dl (32.0-37.0); MEAN CORPUSCULAR VOLUME 95.9 fl (82.0-101.0); MEAN PLATELET VOLUME 10.1 fl (7.4-10.4); MONOCYTES % 8.7 % (0.0-11.0); NEUTROPHIL # 8.7 10^3/ul (1.6-7.5); NEUTROPHILS % 73.8 % (39.0-77.0); PLATELET COUNT 442 10^3/UL (140-415); RED BLOOD COUNT 3.44 10^6/ul (4.20-5.40); RED CELL DISTRIBUTION WIDTH 13.2 % (11.5-14.5)
[2017-12-27 06:24] LABS: WHITE BLOOD COUNT 11.8 10^3/ul (4.8-10.8)
[2017-12-27 06:36] LABS: INR 1.63; PROTIME 19.7 Sec (11.9-14.9); PT RATIO 1.5
[2017-12-27 06:52] LABS: ANION GAP 7 (8-16); BLOOD UREA NITROGEN 16 mg/dl (7-20); CALCIUM 8.2 mg/dl (8.4-10.2); CARBON DIOXIDE 28 mmol/L (21-31); CHLORIDE 105 mmol/L (97-110); CREATININE 0.56 mg/dl (0.44-1.00); GLUCOSE 119 mg/dl (70-220); POTASSIUM 3.9 mmol/L (3.5-5.1); SODIUM 136 mmol/L (135-144)
[2017-12-27] MEDS: BETHANECHOL 10 MG TAB PO ×3 (08:11→21:41)
[2017-12-27] MEDS: TIMOLOL 0.5% BOTH EYES ×2 (08:11→21:41)
[2017-12-27] MEDS: DOCUSATE SODIUM 100 MG CAP PO (08:11)
[2017-12-27] MEDS: [UNRECOGNIZED DRUG - OTHER] BOTH EYES ×2 (08:11→21:41)
[2017-12-27] MEDS: DORZOLAMIDE BOTH EYES ×2 (08:11→21:41)
[2017-12-27] MEDS: ESTRADIOL 1 MG TAB PO (08:11)
[2017-12-27] MEDS: DILTIAZEM (CD) 240 MG CAP PO ×2 (08:12→22:01)
[2017-12-27] MEDS: DEXAMETHASONE 0.1% 5 ML OPH RIGHT EYE ×2 (08:13→21:00)
[2017-12-27] MEDS: AZITHROMYCIN 500MG/NS (PMX) 250 ML IVPB (16:03)
[2017-12-27] MEDS: CEFTRIAXONE 1 GM/50 ML (PMX) 50 ML IVPB (16:06)
[2017-12-27] MEDS: WARFARIN 3 MG TAB NGT (18:31)
[2017-12-27] MEDS: DIAZEPAM 5 MG TAB PO (21:00)
[2017-12-28 07:36] LABS: INR 1.56; PT RATIO 1.5
[2017-12-28] MEDS: ESTRADIOL 1 MG TAB PO (09:45)
[2017-12-28] MEDS: BETHANECHOL 10 MG TAB PO ×3 (09:46→20:37)
[2017-12-28] MEDS: DILTIAZEM (CD) 240 MG CAP PO ×2 (09:46→20:38)
[2017-12-28] MEDS: DOCUSATE SODIUM 100 MG CAP PO (09:47)
[2017-12-28] MEDS: DEXAMETHASONE 0.1% 5 ML OPH RIGHT EYE ×2 (09:47→20:39)
[2017-12-28] MEDS: TIMOLOL 0.5% BOTH EYES ×2 (09:49→20:38)
[2017-12-28] MEDS: [UNRECOGNIZED DRUG - OTHER] BOTH EYES ×2 (09:49→20:38)
[2017-12-28] MEDS: DORZOLAMIDE BOTH EYES ×2 (09:49→20:38)
[2017-12-28] MEDS: AZITHROMYCIN 500MG/NS (PMX) 250 ML IVPB (15:51)
[2017-12-28] MEDS: WARFARIN 2 MG TAB PO (17:08)
[2017-12-28] MEDS: CEFTRIAXONE 1 GM/50 ML (PMX) 50 ML IVPB (17:09)
[2017-12-28] MEDS: DIAZEPAM 5 MG TAB PO (20:39)
[2017-12-28] MEDS: BALSAM PERU/CASTOR OIL 60 GM TUBE TOP (20:40)
[2017-12-29 05:50] LABS: ADD MAN DIFF? NO
[2017-12-29 06:04] LABS: BASOPHIL # 0.1 10^3/ul (0.0-0.1); BASOPHILS % 0.5 % (0.0-2.0); EOSINOPHILS # 0.3 10^3/ul (0.0-0.5); EOSINOPHILS % 2.5 % (0.0-7.0); HEMATOCRIT 33.4 % (37.0-47.0); HEMOGLOBIN 10.6 g/dl (12.0-16.0); LYMPHOCYTES % 19.7 % (15.0-51.0); MEAN CORPUSCULAR HEMOGLOBIN 30.2 pg (29.0-33.0); MEAN CORPUSCULAR HGB CONC 31.7 g/dl (32.0-37.0); MEAN CORPUSCULAR VOLUME 95.2 fl (82.0-101.0); MEAN PLATELET VOLUME 9.7 fl (7.4-10.4); MONOCYTE # 0.8 10^3/ul (0.3-0.9); MONOCYTES % 8.2 % (0.0-11.0); NEUTROPHIL # 6.9 10^3/ul (1.6-7.5); NEUTROPHILS % 68.3 % (39.0-77.0); PLATELET COUNT 442 10^3/UL (140-415); RED BLOOD COUNT 3.51 10^6/ul (4.20-5.40); RED CELL DISTRIBUTION WIDTH 13.1 % (11.5-14.5)
[2017-12-29 06:16] LABS: INR 1.73; PROTIME 20.6 Sec (11.9-14.9); PT RATIO 1.6
[2017-12-29 06:23] LABS: ANION GAP 7 (8-16); BLOOD UREA NITROGEN 18 mg/dl (7-20); CALCIUM 8.3 mg/dl (8.4-10.2); CARBON DIOXIDE 29 mmol/L (21-31); CHLORIDE 105 mmol/L (97-110); CREATININE 0.56 mg/dl (0.44-1.00); GLUCOSE 109 mg/dl (70-220); POTASSIUM 3.7 mmol/L (3.5-5.1); SODIUM 137 mmol/L (135-144)
[2017-12-29 06:37] LABS: CREATINE KINASE 25 IU/L (23-200)
[2017-12-29] MEDS: BALSAM PERU/CASTOR OIL 60 GM TUBE TOP ×2 (08:54→20:53)
[2017-12-29] MEDS: DILTIAZEM (CD) 240 MG CAP PO ×2 (08:55→20:54)
[2017-12-29] MEDS: ESTRADIOL 1 MG TAB PO (08:55)
[2017-12-29] MEDS: BETHANECHOL 10 MG TAB PO ×3 (08:56→20:54)
[2017-12-29] MEDS: DORZOLAMIDE BOTH EYES ×2 (08:56→21:18)
[2017-12-29] MEDS: TIMOLOL 0.5% BOTH EYES ×2 (08:56→21:18)
[2017-12-29] MEDS: [UNRECOGNIZED DRUG - OTHER] BOTH EYES ×2 (08:56→21:18)
[2017-12-29] MEDS: DOCUSATE SODIUM 100 MG CAP PO (09:00)
[2017-12-29] MEDS: DEXAMETHASONE 0.1% 5 ML OPH RIGHT EYE ×2 (09:00→20:52)
[2017-12-29] MEDS: CEFTRIAXONE 1 GM/50 ML (PMX) 50 ML IVPB (15:23)
[2017-12-29] MEDS: WARFARIN 2 MG TAB PO (16:22)
[2017-12-29] MEDS: AZITHROMYCIN 500MG/NS (PMX) 250 ML IVPB (16:22)
[2017-12-29] MEDS: DIAZEPAM 5 MG TAB PO (20:53)
[2017-12-30 06:24] LABS: ADD MAN DIFF? NO
[2017-12-30 06:41] LABS: BASOPHIL # 0.1 10^3/ul (0.0-0.1); BASOPHILS % 0.5 % (0.0-2.0); EOSINOPHILS # 0.3 10^3/ul (0.0-0.5); EOSINOPHILS % 2.9 % (0.0-7.0); HEMATOCRIT 35.6 % (37.0-47.0); HEMOGLOBIN 11.2 g/dl (12.0-16.0); LYMPHOCYTES # 2.1 10^3/ul (0.8-2.9); MEAN CORPUSCULAR HEMOGLOBIN 30.2 pg (29.0-33.0); MEAN CORPUSCULAR HGB CONC 31.5 g/dl (32.0-37.0); MEAN PLATELET VOLUME 10.2 fl (7.4-10.4); MONOCYTE # 0.9 10^3/ul (0.3-0.9); MONOCYTES % 7.7 % (0.0-11.0); NEUTROPHIL # 7.7 10^3/ul (1.6-7.5); NEUTROPHILS % 69.3 % (39.0-77.0); PLATELET COUNT 480 10^3/UL (140-415); RED BLOOD COUNT 3.71 10^6/ul (4.20-5.40); RED CELL DISTRIBUTION WIDTH 13.1 % (11.5-14.5)
[2017-12-30 06:41] LABS: WHITE BLOOD COUNT 11.1 10^3/ul (4.8-10.8)
[2017-12-30 06:47] LABS: INR 2.08; PROTIME 23.9 Sec (11.9-14.9); PT RATIO 1.9
[2017-12-30 07:04] LABS: ANION GAP 7 (8-16); BLOOD UREA NITROGEN 17 mg/dl (7-20); CALCIUM 8.5 mg/dl (8.4-10.2); CARBON DIOXIDE 31 mmol/L (21-31); CHLORIDE 104 mmol/L (97-110); CREATININE 0.59 mg/dl (0.44-1.00); GLUCOSE 109 mg/dl (70-220); POTASSIUM 3.6 mmol/L (3.5-5.1); SODIUM 138 mmol/L (135-144)
[2017-12-30] MEDS: BETHANECHOL 10 MG TAB PO ×3 (08:27→20:30)
[2017-12-30] MEDS: DILTIAZEM (CD) 240 MG CAP PO ×2 (08:27→20:30)
[2017-12-30] MEDS: ESTRADIOL 1 MG TAB PO (08:28)
[2017-12-30] MEDS: DORZOLAMIDE BOTH EYES ×2 (08:28→20:32)
[2017-12-30] MEDS: TIMOLOL 0.5% BOTH EYES ×2 (08:28→20:32)
[2017-12-30] MEDS: [UNRECOGNIZED DRUG - OTHER] BOTH EYES ×2 (08:28→20:32)
[2017-12-30] MEDS: DOCUSATE SODIUM 100 MG CAP PO (08:30)
[2017-12-30] MEDS: BALSAM PERU/CASTOR OIL 60 GM TUBE TOP ×2 (08:30→20:31)
[2017-12-30] MEDS: DEXAMETHASONE 0.1% 5 ML OPH RIGHT EYE ×2 (08:30→20:31)
[2017-12-30] MEDS: ASCORBIC ACID 500 MG TAB PO (13:18)
[2017-12-30] MEDS: WARFARIN 3 MG TAB PO (17:30)
[2017-12-30] MEDS: DIAZEPAM 5 MG TAB PO (20:31)
[2017-12-31 05:49] LABS: ADD MAN DIFF? NO
[2017-12-31 06:12] LABS: WHITE BLOOD COUNT 9.8 10^3/ul (4.8-10.8)
[2017-12-31 06:12] LABS: BASOPHIL # 0.1 10^3/ul (0.0-0.1); BASOPHILS % 0.6 % (0.0-2.0); EOSINOPHILS # 0.2 10^3/ul (0.0-0.5); EOSINOPHILS % 2.3 % (0.0-7.0); HEMATOCRIT 33.2 % (37.0-47.0); HEMOGLOBIN 10.6 g/dl (12.0-16.0); LYMPHOCYTES # 1.6 10^3/ul (0.8-2.9); LYMPHOCYTES % 16.7 % (15.0-51.0); MEAN CORPUSCULAR HEMOGLOBIN 30.6 pg (29.0-33.0); MEAN CORPUSCULAR HGB CONC 31.9 g/dl (32.0-37.0); MEAN PLATELET VOLUME 10.2 fl (7.4-10.4); MONOCYTE # 0.9 10^3/ul (0.3-0.9); NEUTROPHIL # 6.9 10^3/ul (1.6-7.5); NEUTROPHILS % 70.8 % (39.0-77.0); PLATELET COUNT 428 10^3/UL (140-415); RED BLOOD COUNT 3.46 10^6/ul (4.20-5.40); RED CELL DISTRIBUTION WIDTH 13.2 % (11.5-14.5)
[2017-12-31 06:23] LABS: INR 2.38; PROTIME 26.6 Sec (11.9-14.9); PT RATIO 2.1
[2017-12-31 06:35] LABS: ANION GAP 8 (8-16); BLOOD UREA NITROGEN 17 mg/dl (7-20); CALCIUM 8.3 mg/dl (8.4-10.2); CARBON DIOXIDE 30 mmol/L (21-31); CHLORIDE 104 mmol/L (97-110); CREATININE 0.56 mg/dl (0.44-1.00); GLUCOSE 112 mg/dl (70-220); POTASSIUM 3.5 mmol/L (3.5-5.1); SODIUM 138 mmol/L (135-144)
[2017-12-31] MEDS: DEXAMETHASONE 0.1% 5 ML OPH RIGHT EYE ×2 (09:00→21:00)
[2017-12-31] MEDS: TIMOLOL 0.5% BOTH EYES ×2 (09:43→21:00)
[2017-12-31] MEDS: MULTIVITAMINS THERAPEUTIC TAB PO (09:43)
[2017-12-31] MEDS: [UNRECOGNIZED DRUG - OTHER] BOTH EYES ×2 (09:43→21:00)
[2017-12-31] MEDS: DORZOLAMIDE BOTH EYES ×2 (09:43→21:00)
[2017-12-31] MEDS: ASCORBIC ACID 500 MG TAB PO (09:44)
[2017-12-31] MEDS: DILTIAZEM (CD) 240 MG CAP PO ×2 (09:44→21:24)
[2017-12-31] MEDS: BETHANECHOL 10 MG TAB PO ×3 (09:44→21:24)
[2017-12-31] MEDS: ESTRADIOL 1 MG TAB PO (09:44)
[2017-12-31] MEDS: BALSAM PERU/CASTOR OIL 60 GM TUBE TOP ×2 (09:45→21:24)
[2017-12-31] MEDS: WARFARIN 2.5 MG TAB PO (14:59)
[2017-12-31] MEDS: BETAMET NA PHOS/AC(6 MG/ML) 5ML INJ IU (18:30)
[2017-12-31] MEDS: BUPIVACAINE 0.5% (MPF) 30 ML INJ EPI (18:30)
[2017-12-31 18:38] LABS: URIC ACID 2.9 mg/dl (3.1-7.9)
[2017-12-31] MEDS: DIAZEPAM 5 MG TAB PO (21:00)
[2018-01-01 06:38] LABS: ADD MAN DIFF? NO
[2018-01-01 06:47] LABS: BASOPHIL # 0.1 10^3/ul (0.0-0.1); BASOPHILS % 0.6 % (0.0-2.0); EOSINOPHILS # 0.2 10^3/ul (0.0-0.5); EOSINOPHILS % 1.5 % (0.0-7.0); HEMATOCRIT 34.3 % (37.0-47.0); HEMOGLOBIN 10.9 g/dl (12.0-16.0); IMMATURE GRANS #M 0.06 10^3/ul; IMMATURE GRANS % (M) 0.5 %; LYMPHOCYTES # 1.8 10^3/ul (0.8-2.9); LYMPHOCYTES % 14.7 % (15.0-51.0); MEAN CORPUSCULAR HEMOGLOBIN 30.3 pg (29.0-33.0); MEAN CORPUSCULAR HGB CONC 31.8 g/dl (32.0-37.0); MEAN CORPUSCULAR VOLUME 95.3 fl (82.0-101.0); MEAN PLATELET VOLUME 10.3 fl (7.4-10.4); MONOCYTES % 8.3 % (0.0-11.0); NEUTROPHIL # 9.2 10^3/ul (1.6-7.5); NEUTROPHILS % 74.4 % (39.0-77.0); PLATELET COUNT 414 10^3/UL (140-415); RED CELL DISTRIBUTION WIDTH 13.2 % (11.5-14.5)
[2018-01-01 06:47] LABS: WHITE BLOOD COUNT 12.4 10^3/ul (4.8-10.8)
[2018-01-01 07:07] LABS: ANION GAP 7 (8-16); BLOOD UREA NITROGEN 19 mg/dl (7-20); CALCIUM 8.5 mg/dl (8.4-10.2); CARBON DIOXIDE 32 mmol/L (21-31); CHLORIDE 104 mmol/L (97-110); CREATININE 0.53 mg/dl (0.44-1.00); GLUCOSE 121 mg/dl (70-220); POTASSIUM 3.7 mmol/L (3.5-5.1); SODIUM 139 mmol/L (135-144); URIC ACID 2.7 mg/dl (3.1-7.9)
[2018-01-01 07:14] LABS: INR 2.51; PROTIME 27.8 Sec (11.9-14.9); PT RATIO 2.2
[2018-01-01] MEDS: DEXAMETHASONE 0.1% 5 ML OPH RIGHT EYE ×2 (09:00→21:52)
[2018-01-01] MEDS: [UNRECOGNIZED DRUG - OTHER] BOTH EYES ×2 (09:32→21:52)
[2018-01-01] MEDS: DORZOLAMIDE BOTH EYES ×2 (09:32→21:52)
[2018-01-01] MEDS: TIMOLOL 0.5% BOTH EYES ×2 (09:32→21:52)
[2018-01-01] MEDS: BETHANECHOL 10 MG TAB PO ×3 (09:33→21:53)
[2018-01-01] MEDS: MULTIVITAMINS THERAPEUTIC TAB PO (09:33)
[2018-01-01] MEDS: DILTIAZEM (CD) 240 MG CAP PO ×2 (09:33→21:53)
[2018-01-01] MEDS: ASCORBIC ACID 500 MG TAB PO (09:33)
[2018-01-01] MEDS: ESTRADIOL 1 MG TAB PO (09:33)
[2018-01-01] MEDS: BALSAM PERU/CASTOR OIL 60 GM TUBE TOP ×2 (09:34→21:52)
[2018-01-01] MEDS: WARFARIN 2.5 MG TAB PO (17:18)
[2018-01-01] MEDS: DOCUSATE SODIUM 100 MG CAP PO (17:25)
[2018-01-01] MEDS: PROPYLENE GLYCOL/PEG 15 ML OPH BOTH EYES (21:52)
[2018-01-01] MEDS: DIAZEPAM 5 MG TAB PO (21:57)
[2018-01-02 06:21] LABS: WHITE BLOOD COUNT 12.6 10^3/ul (4.8-10.8)
[2018-01-02 06:21] LABS: ADD MAN DIFF? NO; BASOPHIL # 0.1 10^3/ul (0.0-0.1); BASOPHILS % 0.4 % (0.0-2.0); EOSINOPHILS # 0.1 10^3/ul (0.0-0.5); EOSINOPHILS % 0.9 % (0.0-7.0); HEMATOCRIT 34.9 % (37.0-47.0); HEMOGLOBIN 11.1 g/dl (12.0-16.0); IMMATURE GRANS #M 0.05 10^3/ul; IMMATURE GRANS % (M) 0.4 %; LYMPHOCYTES # 1.4 10^3/ul (0.8-2.9); MEAN CORPUSCULAR HEMOGLOBIN 30.1 pg (29.0-33.0); MEAN CORPUSCULAR HGB CONC 31.8 g/dl (32.0-37.0); MEAN CORPUSCULAR VOLUME 94.6 fl (82.0-101.0); MEAN PLATELET VOLUME 10.1 fl (7.4-10.4); MONOCYTE # 1.1 10^3/ul (0.3-0.9); MONOCYTES % 8.5 % (0.0-11.0); NEUTROPHIL # 9.9 10^3/ul (1.6-7.5); NEUTROPHILS % 78.8 % (39.0-77.0); PLATELET COUNT 375 10^3/UL (140-415); RED BLOOD COUNT 3.69 10^6/ul (4.20-5.40); RED CELL DISTRIBUTION WIDTH 13.2 % (11.5-14.5)
[2018-01-02 06:44] LABS: ANION GAP 8 (8-16); BLOOD UREA NITROGEN 17 mg/dl (7-20); CALCIUM 8.2 mg/dl (8.4-10.2); CARBON DIOXIDE 32 mmol/L (21-31); CHLORIDE 101 mmol/L (97-110); CREATININE 0.51 mg/dl (0.44-1.00); GLUCOSE 123 mg/dl (70-220); POTASSIUM 3.4 mmol/L (3.5-5.1); SODIUM 138 mmol/L (135-144)
[2018-01-02 06:45] LABS: INR 2.91; PROTIME 31.3 Sec (11.9-14.9); PT RATIO 2.4
[2018-01-02] MEDS: DEXAMETHASONE 0.1% 5 ML OPH RIGHT EYE ×2 (09:00→21:31)
[2018-01-02] MEDS: DORZOLAMIDE BOTH EYES ×2 (09:34→21:32)
[2018-01-02] MEDS: ASCORBIC ACID 500 MG TAB PO (09:34)
[2018-01-02] MEDS: MULTIVITAMINS THERAPEUTIC TAB PO (09:34)
[2018-01-02] MEDS: TIMOLOL 0.5% BOTH EYES ×2 (09:34→21:32)
[2018-01-02] MEDS: DILTIAZEM (CD) 240 MG CAP PO ×2 (09:34→21:30)
[2018-01-02] MEDS: [UNRECOGNIZED DRUG - OTHER] BOTH EYES ×2 (09:34→21:32)
[2018-01-02] MEDS: BALSAM PERU/CASTOR OIL 60 GM TUBE TOP ×2 (09:35→21:31)
[2018-01-02] MEDS: ESTRADIOL 1 MG TAB PO (09:35)
[2018-01-02] MEDS: BETHANECHOL 10 MG TAB PO ×3 (09:35→21:29)
[2018-01-02] MEDS: BETAMET NA PHOS/AC(6 MG/ML) 5ML INJ INJ (12:00)
[2018-01-02] MEDS: BUPIVACAINE 0.5% (MPF) 10 ML VIAL INJ (12:00)
[2018-01-02 14:06] LABS: ABNORMAL PROTEIN BAND 1 0.2 g/dL (NONE DETECTED); ALBUMIN 1.8 g/dL (3.8-4.8); ALPHA-1-GLOBULINS 0.5 g/dL (0.2-0.3); BETA 2 GLOBULINS 0.4 g/dL (0.2-0.5); BETA GLOBULINS 0.4 g/dL (0.4-0.6); GAMMA GLOBULINS 1.1 g/dL (0.8-1.7); PROTEIN, TOTAL 5.2 g/dL (6.1-8.1)
[2018-01-02 14:07] LABS: ACETYLCHOLINE RECEPTOR AB <0.30 nmol/L
[2018-01-02] MEDS: POTASSIUM CHLORIDE (SR) 20 MEQ TAB PO (17:56)
[2018-01-02] MEDS: WARFARIN 2.5 MG TAB PO (17:56)
[2018-01-02 21:05] LABS: ADD UMIC YES; UR ASCORBIC ACID 40 mg/dL (NEGATIVE); UR BILIRUBIN (Dip) NEGATIVE (NEGATIVE); UR BLOOD (Dip) 3+ mg/dL (NEGATIVE); UR CLARITY CLOUDY (CLEAR); UR COLOR AMBER (YELLOW); UR GLUCOSE (Dip) NEGATIVE (NEGATIVE); UR KETONES (Dip) NEGATIVE (NEGATIVE); UR LEUKOCYTE ESTERASE (Dip) NEGATIVE Leu/ul (NEGATIVE); UR MUCUS MANY /HPF (NONE SEEN); UR NITRITE (Dip) NEGATIVE (NEGATIVE); UR RBC > 182 /HPF (0-5); UR SPECIFIC GRAVITY (Dip) 1.025 (1.003-1.030); UR SQUAMOUS EPITHELIAL CELL MODERATE /HPF (FEW); UR TOTAL PROTEIN (Dip) 2+ mg/dl (NEGATIVE); UR UROBILINOGEN (Dip) 1+ mg/dL (NEGATIVE); UR WBC 40 /HPF (0-5)
[2018-01-02] MEDS: DIAZEPAM 5 MG TAB PO (21:29)
[2018-01-02] MEDS: PROPYLENE GLYCOL/PEG 15 ML OPH BOTH EYES (21:30)
[2018-01-03 05:51] LABS: ADD MAN DIFF? NO
[2018-01-03 06:07] LABS: BASOPHIL # 0.1 10^3/ul (0.0-0.1); BASOPHILS % 0.5 % (0.0-2.0); EOSINOPHILS # 0.1 10^3/ul (0.0-0.5); EOSINOPHILS % 0.8 % (0.0-7.0); HEMATOCRIT 34.2 % (37.0-47.0); IMMATURE GRANS #M 0.05 10^3/ul; IMMATURE GRANS % (M) 0.4 %; LYMPHOCYTES # 1.3 10^3/ul (0.8-2.9); LYMPHOCYTES % 11.2 % (15.0-51.0); MEAN CORPUSCULAR HEMOGLOBIN 30.7 pg (29.0-33.0); MEAN CORPUSCULAR HGB CONC 32.2 g/dl (32.0-37.0); MEAN CORPUSCULAR VOLUME 95.5 fl (82.0-101.0); MEAN PLATELET VOLUME 10.9 fl (7.4-10.4); MONOCYTES % 8.2 % (0.0-11.0); NEUTROPHIL # 9.4 10^3/ul (1.6-7.5); NEUTROPHILS % 78.9 % (39.0-77.0); PLATELET COUNT 385 10^3/UL (140-415); RED BLOOD COUNT 3.58 10^6/ul (4.20-5.40); RED CELL DISTRIBUTION WIDTH 13.2 % (11.5-14.5)
[2018-01-03 06:07] LABS: WHITE BLOOD COUNT 11.9 10^3/ul (4.8-10.8)
[2018-01-03 06:16] LABS: INR 3.24; PROTIME 34.1 Sec (11.9-14.9); PT RATIO 2.7
[2018-01-03 06:33] LABS: ANION GAP 8 (8-16); BLOOD UREA NITROGEN 17 mg/dl (7-20); CALCIUM 8.2 mg/dl (8.4-10.2); CARBON DIOXIDE 31 mmol/L (21-31); CHLORIDE 101 mmol/L (97-110); CREATININE 0.51 mg/dl (0.44-1.00); GLUCOSE 128 mg/dl (70-220); MAGNESIUM 1.7 mg/dl (1.7-2.5); POTASSIUM 3.3 mmol/L (3.5-5.1); SODIUM 137 mmol/L (135-144)
[2018-01-03] MEDS: DILTIAZEM (CD) 240 MG CAP PO ×2 (08:09→21:41)
[2018-01-03] MEDS: ASCORBIC ACID 500 MG TAB PO (08:09)
[2018-01-03] MEDS: ESTRADIOL 1 MG TAB PO (08:09)
[2018-01-03] MEDS: BETHANECHOL 10 MG TAB PO ×2 (08:09→10:33)
[2018-01-03] MEDS: MULTIVITAMINS THERAPEUTIC TAB PO (08:09)
[2018-01-03] MEDS: DEXAMETHASONE 0.1% 5 ML OPH RIGHT EYE ×2 (08:10→21:42)
[2018-01-03] MEDS: [UNRECOGNIZED DRUG - OTHER] BOTH EYES ×2 (08:10→21:43)
[2018-01-03] MEDS: TIMOLOL 0.5% BOTH EYES ×2 (08:10→21:43)
[2018-01-03] MEDS: BALSAM PERU/CASTOR OIL 60 GM TUBE TOP ×2 (08:10→21:42)
[2018-01-03] MEDS: DORZOLAMIDE BOTH EYES ×2 (08:10→21:43)
[2018-01-03] MEDS: BETHANECHOL 25 MG TAB PO ×2 (13:00→21:41)
[2018-01-03] MEDS: POTASSIUM CHLORIDE (SR) 20 MEQ TAB PO (14:21)
[2018-01-03] MEDS: MAGNESIUM SULFATE 2 GM/50 ML 50 ML IVPB (15:36)
[2018-01-03] MEDS: BETAMET NA PHOS/AC(6 MG/ML) 5ML INJ INJ (19:05)
[2018-01-03] MEDS: BUPIVACAINE 0.5% (MPF) 10 ML VIAL INJ (19:06)
[2018-01-03] MEDS: DIAZEPAM 5 MG TAB PO (21:00)
[2018-01-03] MEDS: PROPYLENE GLYCOL/PEG 15 ML OPH BOTH EYES (21:42)
[2018-01-04 05:59] LABS: ADD MAN DIFF? NO
[2018-01-04 06:09] LABS: BASOPHILS % 0.1 % (0.0-2.0); HEMATOCRIT 34.7 % (37.0-47.0); HEMOGLOBIN 11.3 g/dl (12.0-16.0); IMMATURE GRANS #M 0.06 10^3/ul; IMMATURE GRANS % (M) 0.6 %; LYMPHOCYTES # 0.8 10^3/ul (0.8-2.9); MEAN CORPUSCULAR HEMOGLOBIN 30.9 pg (29.0-33.0); MEAN CORPUSCULAR HGB CONC 32.6 g/dl (32.0-37.0); MEAN CORPUSCULAR VOLUME 94.8 fl (82.0-101.0); MEAN PLATELET VOLUME 10.5 fl (7.4-10.4); MONOCYTE # 0.2 10^3/ul (0.3-0.9); MONOCYTES % 1.7 % (0.0-11.0); NEUTROPHIL # 8.9 10^3/ul (1.6-7.5); NEUTROPHILS % 89.6 % (39.0-77.0); PLATELET COUNT 425 10^3/UL (140-415); RED BLOOD COUNT 3.66 10^6/ul (4.20-5.40)
[2018-01-04 06:29] LABS: INR 3.48; PROTIME 36.1 Sec (11.9-14.9); PT RATIO 2.8
[2018-01-04 07:06] LABS: ANION GAP 11 (8-16); BLOOD UREA NITROGEN 24 mg/dl (7-20); CALCIUM 8.5 mg/dl (8.4-10.2); CARBON DIOXIDE 30 mmol/L (21-31); CHLORIDE 100 mmol/L (97-110); CREATININE 0.57 mg/dl (0.44-1.00); GLUCOSE 172 mg/dl (70-220); MAGNESIUM 2.3 mg/dl (1.7-2.5); SODIUM 137 mmol/L (135-144)
[2018-01-04] MEDS: [UNRECOGNIZED DRUG - OTHER] BOTH EYES ×3 (08:26→21:05)
[2018-01-04] MEDS: TIMOLOL 0.5% BOTH EYES ×3 (08:26→21:05)
[2018-01-04] MEDS: DORZOLAMIDE BOTH EYES ×3 (08:26→21:05)
[2018-01-04] MEDS: BALSAM PERU/CASTOR OIL 60 GM TUBE TOP ×2 (08:28→21:07)
[2018-01-04] MEDS: ESTRADIOL 1 MG TAB PO (08:29)
[2018-01-04] MEDS: DILTIAZEM (CD) 240 MG CAP PO ×2 (08:29→21:06)
[2018-01-04] MEDS: ASCORBIC ACID 500 MG TAB PO (08:30)
[2018-01-04] MEDS: MULTIVITAMINS THERAPEUTIC TAB PO (08:30)
[2018-01-04] MEDS: BETHANECHOL 25 MG TAB PO ×3 (08:30→21:07)
[2018-01-04] MEDS: DEXAMETHASONE 0.1% 5 ML OPH RIGHT EYE ×3 (08:31→21:00)
[2018-01-04] MEDS: DIAZEPAM 5 MG TAB PO (21:00)
[2018-01-05 06:14] LABS: ADD MAN DIFF? NO
[2018-01-05 06:21] LABS: BASOPHILS % 0.1 % (0.0-2.0); HEMATOCRIT 30.8 % (37.0-47.0); HEMOGLOBIN 9.9 g/dl (12.0-16.0); IMMATURE GRANS % (M) 0.8 %; LYMPHOCYTES # 1.1 10^3/ul (0.8-2.9); LYMPHOCYTES % 9.5 % (15.0-51.0); MEAN CORPUSCULAR HEMOGLOBIN 30.1 pg (29.0-33.0); MEAN CORPUSCULAR HGB CONC 32.1 g/dl (32.0-37.0); MEAN CORPUSCULAR VOLUME 93.6 fl (82.0-101.0); MEAN PLATELET VOLUME 10.4 fl (7.4-10.4); MONOCYTE # 0.6 10^3/ul (0.3-0.9); MONOCYTES % 4.9 % (0.0-11.0); NEUTROPHILS % 84.7 % (39.0-77.0); PLATELET COUNT 385 10^3/UL (140-415); RED BLOOD COUNT 3.29 10^6/ul (4.20-5.40); RED CELL DISTRIBUTION WIDTH 13.1 % (11.5-14.5)
[2018-01-05 06:21] LABS: WHITE BLOOD COUNT 11.8 10^3/ul (4.8-10.8)
[2018-01-05 06:37] LABS: PROTIME 32.9 Sec (11.9-14.9); PT RATIO 2.6
[2018-01-05 06:54] LABS: ANION GAP 8 (8-16); BLOOD UREA NITROGEN 29 mg/dl (7-20); CALCIUM 8.3 mg/dl (8.4-10.2); CARBON DIOXIDE 31 mmol/L (21-31); CHLORIDE 101 mmol/L (97-110); CREATININE 0.53 mg/dl (0.44-1.00); GLUCOSE 153 mg/dl (70-220); POTASSIUM 3.9 mmol/L (3.5-5.1); SODIUM 136 mmol/L (135-144)
[2018-01-05] MEDS: DEXAMETHASONE 0.1% 5 ML OPH RIGHT EYE ×2 (09:00→21:00)
[2018-01-05] MEDS: [UNRECOGNIZED DRUG - OTHER] BOTH EYES ×2 (09:10→22:00)
[2018-01-05] MEDS: DORZOLAMIDE BOTH EYES ×2 (09:10→22:00)
[2018-01-05] MEDS: TIMOLOL 0.5% BOTH EYES ×2 (09:10→22:00)
[2018-01-05] MEDS: DILTIAZEM (CD) 240 MG CAP PO ×2 (09:13→22:06)
[2018-01-05] MEDS: ASCORBIC ACID 500 MG TAB PO (09:13)
[2018-01-05] MEDS: MULTIVITAMINS THERAPEUTIC TAB PO (09:13)
[2018-01-05] MEDS: BETHANECHOL 25 MG TAB PO ×3 (09:14→22:06)
[2018-01-05] MEDS: ESTRADIOL 1 MG TAB PO (09:14)
[2018-01-05] MEDS: BALSAM PERU/CASTOR OIL 60 GM TUBE TOP ×2 (09:16→22:07)
[2018-01-05] MEDS: FLUCONAZOLE 150 MG TAB PO (14:29)
[2018-01-05] MEDS: NS + KCL 20 MEQ 1,000 ML IV (14:29)
[2018-01-05] MEDS: IOHEXOL 300MG/ML 150 ML BTL (17:15)
[2018-01-05] MEDS: SOD CHLORIDE 0.9% 100 ML (17:16)
[2018-01-05] MEDS: DIAZEPAM 5 MG TAB PO (21:00)
[2018-01-06 05:46] LABS: ADD MAN DIFF? NO
[2018-01-06 05:47] LABS: WHITE BLOOD COUNT 12.6 10^3/ul (4.8-10.8)
[2018-01-06 05:47] LABS: BASOPHILS % 0.2 % (0.0-2.0); HEMATOCRIT 34.3 % (37.0-47.0); LYMPHOCYTES % 7.9 % (15.0-51.0); MEAN CORPUSCULAR HEMOGLOBIN 30.5 pg (29.0-33.0); MEAN CORPUSCULAR HGB CONC 32.1 g/dl (32.0-37.0); MEAN PLATELET VOLUME 10.4 fl (7.4-10.4); MONOCYTE # 0.8 10^3/ul (0.3-0.9); MONOCYTES % 6.4 % (0.0-11.0); NEUTROPHIL # 10.7 10^3/ul (1.6-7.5); NEUTROPHILS % 84.8 % (39.0-77.0); PLATELET COUNT 442 10^3/UL (140-415); RED BLOOD COUNT 3.61 10^6/ul (4.20-5.40); RED CELL DISTRIBUTION WIDTH 13.2 % (11.5-14.5)
[2018-01-06 06:07] LABS: ALANINE AMINOTRANSFERASE 67 IU/L (13-69); ALBUMIN 2.7 g/dl (3.3-4.9); ALBUMIN/GLOBULIN RATIO 0.72; ALKALINE PHOSPHATASE 87 IU/L (42-121); ANION GAP 11 (8-16); ASPARTATE AMINO TRANSFERASE 88 IU/L (15-46); BILIRUBIN,INDIRECT 0.2 mg/dl (0-1.1); BILIRUBIN,TOTAL 0.2 mg/dl (0.2-1.3); BLOOD UREA NITROGEN 29 mg/dl (7-20); CALCIUM 8.4 mg/dl (8.4-10.2); CARBON DIOXIDE 29 mmol/L (21-31); CHLORIDE 101 mmol/L (97-110); CREATININE 0.58 mg/dl (0.44-1.00); GLUCOSE 138 mg/dl (70-220); POTASSIUM 4.8 mmol/L (3.5-5.1); SODIUM 136 mmol/L (135-144); TOTAL PROTEIN 6.4 g/dl (6.1-8.1)
[2018-01-06 06:13] LABS: INR 2.34; PROTIME 26.3 Sec (11.9-14.9); PT RATIO 2.1
[2018-01-06] MEDS: DEXAMETHASONE 0.1% 5 ML OPH RIGHT EYE ×2 (09:00→21:00)
[2018-01-06] MEDS: ESTRADIOL 1 MG TAB PO (09:29)
[2018-01-06] MEDS: DILTIAZEM (CD) 240 MG CAP PO ×2 (09:30→20:58)
[2018-01-06] MEDS: MULTIVITAMINS THERAPEUTIC TAB PO (09:30)
[2018-01-06] MEDS: BETHANECHOL 25 MG TAB PO ×3 (09:30→21:23)
[2018-01-06] MEDS: TIMOLOL 0.5% BOTH EYES ×2 (09:31→21:05)
[2018-01-06] MEDS: ASCORBIC ACID 500 MG TAB PO (09:31)
[2018-01-06] MEDS: [UNRECOGNIZED DRUG - OTHER] BOTH EYES ×2 (09:31→21:05)
[2018-01-06] MEDS: BALSAM PERU/CASTOR OIL 60 GM TUBE TOP ×2 (09:31→20:59)
[2018-01-06] MEDS: DORZOLAMIDE BOTH EYES ×2 (09:31→21:05)
[2018-01-06] MEDS: FLUCONAZOLE 200 MG TAB PO (12:50)
[2018-01-06] MEDS: NS + KCL 20 MEQ 1,000 ML IV (14:42)
[2018-01-06] MEDS: WARFARIN 2 MG TAB PO (16:41)
[2018-01-06] MEDS: DIAZEPAM 5 MG TAB PO (21:00)
[2018-01-07 06:19] LABS: ADD MAN DIFF? NO
[2018-01-07 06:37] LABS: BASOPHILS % 0.1 % (0.0-2.0); EOSINOPHILS % 0.1 % (0.0-7.0); HEMATOCRIT 35.8 % (37.0-47.0); HEMOGLOBIN 11.3 g/dl (12.0-16.0); LYMPHOCYTES # 1.6 10^3/ul (0.8-2.9); LYMPHOCYTES % 11.2 % (15.0-51.0); MEAN CORPUSCULAR HEMOGLOBIN 30.3 pg (29.0-33.0); MEAN CORPUSCULAR HGB CONC 31.6 g/dl (32.0-37.0); MEAN PLATELET VOLUME 10.9 fl (7.4-10.4); MONOCYTE # 1.3 10^3/ul (0.3-0.9); MONOCYTES % 9.4 % (0.0-11.0); NEUTROPHIL # 11.1 10^3/ul (1.6-7.5); NEUTROPHILS % 78.2 % (39.0-77.0); PLATELET COUNT 439 10^3/UL (140-415); RED BLOOD COUNT 3.73 10^6/ul (4.20-5.40); RED CELL DISTRIBUTION WIDTH 13.5 % (11.5-14.5)
[2018-01-07 06:37] LABS: WHITE BLOOD COUNT 14.1 10^3/ul (4.8-10.8)
[2018-01-07 06:58] LABS: INR 1.92; PROTIME 22.4 Sec (11.9-14.9); PT RATIO 1.8
[2018-01-07 07:09] LABS: ANION GAP 10 (8-16); BLOOD UREA NITROGEN 25 mg/dl (7-20); CALCIUM 8.4 mg/dl (8.4-10.2); CARBON DIOXIDE 29 mmol/L (21-31); CHLORIDE 102 mmol/L (97-110); CREATININE 0.54 mg/dl (0.44-1.00); GLUCOSE 124 mg/dl (70-220); SODIUM 136 mmol/L (135-144)
[2018-01-07] MEDS: ASCORBIC ACID 500 MG TAB PO (09:02)
[2018-01-07] MEDS: BETHANECHOL 25 MG TAB PO ×3 (09:02→21:30)
[2018-01-07] MEDS: MULTIVITAMINS THERAPEUTIC TAB PO (09:02)
[2018-01-07] MEDS: [UNRECOGNIZED DRUG - OTHER] BOTH EYES ×2 (09:03→21:32)
[2018-01-07] MEDS: DORZOLAMIDE BOTH EYES ×2 (09:03→21:32)
[2018-01-07] MEDS: TIMOLOL 0.5% BOTH EYES ×2 (09:03→21:32)
[2018-01-07] MEDS: ESTRADIOL 1 MG TAB PO (09:04)
[2018-01-07] MEDS: DEXAMETHASONE 0.1% 5 ML OPH RIGHT EYE ×2 (09:06→21:00)
[2018-01-07] MEDS: BALSAM PERU/CASTOR OIL 60 GM TUBE TOP ×2 (09:07→21:33)
[2018-01-07] MEDS: DILTIAZEM (CD) 240 MG CAP PO ×2 (09:20→21:31)
[2018-01-07 17:28] LABS: ADD UMIC YES; UR ASCORBIC ACID 40 mg/dL (NEGATIVE); UR BILIRUBIN (Dip) NEGATIVE (NEGATIVE); UR BLOOD (Dip) 1+ mg/dL (NEGATIVE); UR CLARITY SLIGHTLY CLOUDY (CLEAR); UR COLOR YELLOW (YELLOW); UR GLUCOSE (Dip) NEGATIVE (NEGATIVE); UR KETONES (Dip) NEGATIVE (NEGATIVE); UR LEUKOCYTE ESTERASE (Dip) 1+ Leu/ul (NEGATIVE); UR NITRITE (Dip) NEGATIVE (NEGATIVE); UR RBC 30 /HPF (0-5); UR SPECIFIC GRAVITY (Dip) 1.019 (1.003-1.030); UR SQUAMOUS EPITHELIAL CELL FEW /HPF (FEW); UR TOTAL PROTEIN (Dip) NEGATIVE (NEGATIVE); UR UROBILINOGEN (Dip) 2+ mg/dL (NEGATIVE); UR WBC 25 /HPF (0-5)
[2018-01-07] MEDS: WARFARIN 2 MG TAB PO (17:30)
[2018-01-07] MEDS: DIAZEPAM 5 MG TAB PO (21:00)
[2018-01-08] MEDS: PANTOPRAZOLE (EC) 40 MG TAB PO (05:39)
[2018-01-08 06:37] LABS: ADD MAN DIFF? NO; BASOPHILS % 0.1 % (0.0-2.0); EOSINOPHILS # 0.2 10^3/ul (0.0-0.5); EOSINOPHILS % 1.5 % (0.0-7.0); HEMOGLOBIN 10.9 g/dl (12.0-16.0); LYMPHOCYTES # 2.1 10^3/ul (0.8-2.9); LYMPHOCYTES % 16.8 % (15.0-51.0); MEAN CORPUSCULAR HEMOGLOBIN 30.4 pg (29.0-33.0); MEAN CORPUSCULAR HGB CONC 32.1 g/dl (32.0-37.0); MEAN CORPUSCULAR VOLUME 94.7 fl (82.0-101.0); MEAN PLATELET VOLUME 10.3 fl (7.4-10.4); MONOCYTES % 8.5 % (0.0-11.0); NEUTROPHIL # 8.8 10^3/ul (1.6-7.5); PLATELET COUNT 380 10^3/UL (140-415); RED BLOOD COUNT 3.59 10^6/ul (4.20-5.40); RED CELL DISTRIBUTION WIDTH 13.3 % (11.5-14.5)
[2018-01-08 06:37] LABS: WHITE BLOOD COUNT 12.3 10^3/ul (4.8-10.8)
[2018-01-08 07:04] LABS: INR 2.32; PROTIME 26.1 Sec (11.9-14.9)
[2018-01-08 07:28] LABS: ALANINE AMINOTRANSFERASE 54 IU/L (13-69); ALBUMIN 2.5 g/dl (3.3-4.9); ALBUMIN/GLOBULIN RATIO 0.75; ALKALINE PHOSPHATASE 78 IU/L (42-121); ANION GAP 10 (8-16); ASPARTATE AMINO TRANSFERASE 40 IU/L (15-46); BILIRUBIN,INDIRECT 0.2 mg/dl (0-1.1); BILIRUBIN,TOTAL 0.2 mg/dl (0.2-1.3); BLOOD UREA NITROGEN 18 mg/dl (7-20); CALCIUM 8.1 mg/dl (8.4-10.2); CARBON DIOXIDE 29 mmol/L (21-31); CHLORIDE 102 mmol/L (97-110); CREATININE 0.54 mg/dl (0.44-1.00); GLUCOSE 102 mg/dl (70-220); POTASSIUM 4.3 mmol/L (3.5-5.1); SODIUM 137 mmol/L (135-144); TOTAL PROTEIN 5.8 g/dl (6.1-8.1)
[2018-01-08] MEDS ORDERED: VANCOMYCIN IV PER PHARMACY XX (07:30)
[2018-01-08] MEDS: DEXAMETHASONE 0.1% 5 ML OPH RIGHT EYE ×2 (08:25→20:57)
[2018-01-08] MEDS: VANCOMYCIN 1 GM 250 ML IVPB (08:25)
[2018-01-08] MEDS: FLUCONAZOLE 200 MG TAB PO (08:29)
[2018-01-08] MEDS: DILTIAZEM (CD) 240 MG CAP PO ×2 (08:29→20:56)
[2018-01-08] MEDS: MULTIVITAMINS THERAPEUTIC TAB PO (08:29)
[2018-01-08] MEDS: ASCORBIC ACID 500 MG TAB PO (08:29)
[2018-01-08] MEDS: ESTRADIOL 1 MG TAB PO (08:30)
[2018-01-08] MEDS: BETHANECHOL 25 MG TAB PO ×3 (08:31→20:55)
[2018-01-08] MEDS: TIMOLOL 0.5% BOTH EYES ×2 (08:32→20:57)
[2018-01-08] MEDS: [UNRECOGNIZED DRUG - OTHER] BOTH EYES ×2 (08:32→20:57)
[2018-01-08] MEDS: DORZOLAMIDE BOTH EYES ×2 (08:32→20:57)
[2018-01-08] MEDS: BALSAM PERU/CASTOR OIL 60 GM TUBE TOP ×2 (08:34→20:58)
[2018-01-08] MEDS: WARFARIN 2 MG TAB PO (17:24)
[2018-01-08] MEDS: DIAZEPAM 5 MG TAB PO (21:00)
[2018-01-09] MEDS: PANTOPRAZOLE (EC) 40 MG TAB PO (05:20)
[2018-01-09 05:50] LABS: ADD MAN DIFF? NO
[2018-01-09 05:58] LABS: BASOPHILS % 0.2 % (0.0-2.0); EOSINOPHILS # 0.4 10^3/ul (0.0-0.5); EOSINOPHILS % 2.9 % (0.0-7.0); HEMATOCRIT 33.1 % (37.0-47.0); HEMOGLOBIN 10.5 g/dl (12.0-16.0); LYMPHOCYTES % 15.6 % (15.0-51.0); MEAN CORPUSCULAR HEMOGLOBIN 29.9 pg (29.0-33.0); MEAN CORPUSCULAR HGB CONC 31.7 g/dl (32.0-37.0); MEAN CORPUSCULAR VOLUME 94.3 fl (82.0-101.0); MEAN PLATELET VOLUME 10.1 fl (7.4-10.4); MONOCYTE # 1.1 10^3/ul (0.3-0.9); MONOCYTES % 8.5 % (0.0-11.0); NEUTROPHILS % 71.4 % (39.0-77.0); PLATELET COUNT 337 10^3/UL (140-415); RED BLOOD COUNT 3.51 10^6/ul (4.20-5.40); RED CELL DISTRIBUTION WIDTH 13.4 % (11.5-14.5)
[2018-01-09 05:58] LABS: WHITE BLOOD COUNT 12.6 10^3/ul (4.8-10.8)
[2018-01-09 06:15] LABS: INR 2.62; PROTIME 28.7 Sec (11.9-14.9); PT RATIO 2.2
[2018-01-09 06:46] LABS: ANION GAP 9 (8-16); BLOOD UREA NITROGEN 16 mg/dl (7-20); CALCIUM 8.2 mg/dl (8.4-10.2); CARBON DIOXIDE 29 mmol/L (21-31); CHLORIDE 102 mmol/L (97-110); CREATININE 0.55 mg/dl (0.44-1.00); GLUCOSE 106 mg/dl (70-220); POTASSIUM 4.3 mmol/L (3.5-5.1); SODIUM 136 mmol/L (135-144)
[2018-01-09] MEDS: ESTRADIOL 1 MG TAB PO (08:39)
[2018-01-09] MEDS: ASCORBIC ACID 500 MG TAB PO (08:39)
[2018-01-09] MEDS: FLUCONAZOLE 200 MG TAB PO (08:39)
[2018-01-09] MEDS: BETHANECHOL 25 MG TAB PO ×3 (08:39→20:53)
[2018-01-09] MEDS: MULTIVITAMINS THERAPEUTIC TAB PO (08:39)
[2018-01-09] MEDS: NYSTATIN SUSP 5 ML CUP PO ×4 (08:41→20:53)
[2018-01-09] MEDS: TIMOLOL 0.5% BOTH EYES ×2 (08:41→20:52)
[2018-01-09] MEDS: DORZOLAMIDE BOTH EYES ×2 (08:41→20:52)
[2018-01-09] MEDS: [UNRECOGNIZED DRUG - OTHER] BOTH EYES ×2 (08:41→20:52)
[2018-01-09] MEDS: DILTIAZEM (CD) 240 MG CAP PO ×2 (08:41→21:00)
[2018-01-09] MEDS: BALSAM PERU/CASTOR OIL 60 GM TUBE TOP ×2 (08:42→20:55)
[2018-01-09] MEDS: PROPYLENE GLYCOL/PEG 15 ML OPH BOTH EYES (08:42)
[2018-01-09] MEDS: DEXAMETHASONE 0.1% 5 ML OPH RIGHT EYE ×2 (08:42→20:55)
[2018-01-09] MEDS: AMOXICILLIN 500 MG CAP PO ×2 (14:47→20:55)
[2018-01-09] MEDS: WARFARIN 2 MG TAB PO (18:07)
[2018-01-09] MEDS: DIAZEPAM 5 MG TAB PO (21:05)
[2018-01-10] MEDS: PANTOPRAZOLE (EC) 40 MG TAB PO (05:42)
[2018-01-10] MEDS: AMOXICILLIN 500 MG CAP PO ×3 (05:42→21:11)
[2018-01-10 06:09] LABS: ADD MAN DIFF? NO
[2018-01-10 06:16] LABS: BASOPHILS % 0.2 % (0.0-2.0); EOSINOPHILS # 0.2 10^3/ul (0.0-0.5); EOSINOPHILS % 1.4 % (0.0-7.0); HEMATOCRIT 33.7 % (37.0-47.0); LYMPHOCYTES # 1.2 10^3/ul (0.8-2.9); LYMPHOCYTES % 9.4 % (15.0-51.0); MEAN CORPUSCULAR HEMOGLOBIN 30.7 pg (29.0-33.0); MEAN CORPUSCULAR HGB CONC 32.6 g/dl (32.0-37.0); MEAN CORPUSCULAR VOLUME 94.1 fl (82.0-101.0); MEAN PLATELET VOLUME 10.3 fl (7.4-10.4); MONOCYTE # 1.2 10^3/ul (0.3-0.9); MONOCYTES % 8.8 % (0.0-11.0); NEUTROPHIL # 10.3 10^3/ul (1.6-7.5); NEUTROPHILS % 78.5 % (39.0-77.0); PLATELET COUNT 346 10^3/UL (140-415); RED BLOOD COUNT 3.58 10^6/ul (4.20-5.40); RED CELL DISTRIBUTION WIDTH 13.4 % (11.5-14.5)
[2018-01-10 06:16] LABS: WHITE BLOOD COUNT 13.2 10^3/ul (4.8-10.8)
[2018-01-10 06:31] LABS: INR 2.93; PROTIME 31.4 Sec (11.9-14.9); PT RATIO 2.5
[2018-01-10 06:48] LABS: ANION GAP 10 (8-16); BLOOD UREA NITROGEN 13 mg/dl (7-20); CALCIUM 8.3 mg/dl (8.4-10.2); CARBON DIOXIDE 28 mmol/L (21-31); CHLORIDE 102 mmol/L (97-110); CREATININE 0.53 mg/dl (0.44-1.00); GLUCOSE 120 mg/dl (70-220); POTASSIUM 4.1 mmol/L (3.5-5.1); SODIUM 136 mmol/L (135-144)
[2018-01-10] MEDS: BETHANECHOL 25 MG TAB PO ×3 (08:04→21:11)
[2018-01-10] MEDS: MULTIVITAMINS THERAPEUTIC TAB PO (08:04)
[2018-01-10] MEDS: NYSTATIN SUSP 5 ML CUP PO ×4 (08:04→21:11)
[2018-01-10] MEDS: DOCUSATE SODIUM 100 MG CAP PO (08:04)
[2018-01-10] MEDS: DILTIAZEM (CD) 240 MG CAP PO ×2 (08:05→21:11)
[2018-01-10] MEDS: ASCORBIC ACID 500 MG TAB PO (08:05)
[2018-01-10] MEDS: ESTRADIOL 1 MG TAB PO (08:05)
[2018-01-10] MEDS: FLUCONAZOLE 200 MG TAB PO (08:05)
[2018-01-10] MEDS: TIMOLOL 0.5% BOTH EYES ×2 (08:06→21:09)
[2018-01-10] MEDS: [UNRECOGNIZED DRUG - OTHER] BOTH EYES ×2 (08:06→21:09)
[2018-01-10] MEDS: DORZOLAMIDE BOTH EYES ×2 (08:06→21:09)
[2018-01-10] MEDS: DEXAMETHASONE 0.1% 5 ML OPH RIGHT EYE ×2 (08:06→21:00)
[2018-01-10] MEDS: BALSAM PERU/CASTOR OIL 60 GM TUBE TOP ×2 (08:06→21:11)
[2018-01-10 14:55] LABS: ADD MAN DIFF? NO
[2018-01-10 14:56] LABS: BASOPHILS % 0.1 % (0.0-2.0); EOSINOPHILS # 0.1 10^3/ul (0.0-0.5); EOSINOPHILS % 0.6 % (0.0-7.0); HEMATOCRIT 34.6 % (37.0-47.0); HEMOGLOBIN 11.3 g/dl (12.0-16.0); LYMPHOCYTES # 1.4 10^3/ul (0.8-2.9); LYMPHOCYTES % 9.4 % (15.0-51.0); MEAN CORPUSCULAR HEMOGLOBIN 31.1 pg (29.0-33.0); MEAN CORPUSCULAR HGB CONC 32.7 g/dl (32.0-37.0); MEAN CORPUSCULAR VOLUME 95.3 fl (82.0-101.0); MEAN PLATELET VOLUME 10.5 fl (7.4-10.4); MONOCYTE # 1.4 10^3/ul (0.3-0.9); MONOCYTES % 9.8 % (0.0-11.0); NEUTROPHIL # 11.5 10^3/ul (1.6-7.5); NEUTROPHILS % 78.8 % (39.0-77.0); PLATELET COUNT 305 10^3/UL (140-415); RED BLOOD COUNT 3.63 10^6/ul (4.20-5.40); RED CELL DISTRIBUTION WIDTH 13.5 % (11.5-14.5)
[2018-01-10 14:56] LABS: WHITE BLOOD COUNT 14.6 10^3/ul (4.8-10.8)
[2018-01-10] MEDS: WARFARIN 3 MG TAB PO (16:33)
[2018-01-10] MEDS: DIAZEPAM 5 MG TAB PO (21:00)
[2018-01-10] MEDS: POLYETHYLENE GLYCOL 17 GM PACKET PO (21:12)
[2018-01-11 05:49] LABS: ADD MAN DIFF? NO
[2018-01-11 05:55] LABS: BASOPHILS % 0.2 % (0.0-2.0); EOSINOPHILS # 0.2 10^3/ul (0.0-0.5); EOSINOPHILS % 1.2 % (0.0-7.0); HEMATOCRIT 32.8 % (37.0-47.0); HEMOGLOBIN 10.7 g/dl (12.0-16.0); LYMPHOCYTES # 1.6 10^3/ul (0.8-2.9); LYMPHOCYTES % 11.9 % (15.0-51.0); MEAN CORPUSCULAR HEMOGLOBIN 30.7 pg (29.0-33.0); MEAN CORPUSCULAR HGB CONC 32.6 g/dl (32.0-37.0); MEAN PLATELET VOLUME 10.4 fl (7.4-10.4); MONOCYTE # 1.5 10^3/ul (0.3-0.9); MONOCYTES % 11.1 % (0.0-11.0); NEUTROPHIL # 9.6 10^3/ul (1.6-7.5); NEUTROPHILS % 73.8 % (39.0-77.0); PLATELET COUNT 302 10^3/UL (140-415); RED BLOOD COUNT 3.49 10^6/ul (4.20-5.40)
[2018-01-11 05:55] LABS: WHITE BLOOD COUNT 13.1 10^3/ul (4.8-10.8)
[2018-01-11 06:18] LABS: INR 3.04; PROTIME 32.4 Sec (11.9-14.9); PT RATIO 2.5
[2018-01-11 06:50] LABS: ANION GAP 7 (8-16); BLOOD UREA NITROGEN 13 mg/dl (7-20); CALCIUM 8.3 mg/dl (8.4-10.2); CARBON DIOXIDE 30 mmol/L (21-31); CHLORIDE 101 mmol/L (97-110); CREATININE 0.55 mg/dl (0.44-1.00); GLUCOSE 114 mg/dl (70-220); POTASSIUM 4.1 mmol/L (3.5-5.1); SODIUM 134 mmol/L (135-144)
[2018-01-11] MEDS: PANTOPRAZOLE (EC) 40 MG TAB PO (07:03)
[2018-01-11] MEDS: AMOXICILLIN 500 MG CAP PO ×3 (07:03→21:00)
[2018-01-11] MEDS: BALSAM PERU/CASTOR OIL 60 GM TUBE TOP ×2 (08:19→21:00)
[2018-01-11] MEDS: DEXAMETHASONE 0.1% 5 ML OPH RIGHT EYE ×2 (08:19→21:00)
[2018-01-11] MEDS: ASCORBIC ACID 500 MG TAB PO (08:20)
[2018-01-11] MEDS: FLUCONAZOLE 200 MG TAB PO (08:20)
[2018-01-11] MEDS: BETHANECHOL 25 MG TAB PO ×3 (08:20→20:59)
[2018-01-11] MEDS: ESTRADIOL 1 MG TAB PO (08:21)
[2018-01-11] MEDS: MULTIVITAMINS THERAPEUTIC TAB PO (08:21)
[2018-01-11] MEDS: DILTIAZEM (CD) 240 MG CAP PO ×2 (08:21→20:59)
[2018-01-11] MEDS: TIMOLOL 0.5% BOTH EYES ×2 (08:22→20:59)
[2018-01-11] MEDS: NYSTATIN SUSP 5 ML CUP PO ×4 (08:22→20:59)
[2018-01-11] MEDS: [UNRECOGNIZED DRUG - OTHER] BOTH EYES ×2 (08:22→20:59)
[2018-01-11] MEDS: DORZOLAMIDE BOTH EYES ×2 (08:22→20:59)
[2018-01-11] MEDS: DOCUSATE SODIUM 100 MG CAP PO (13:00)
[2018-01-11] MEDS: DIAZEPAM 5 MG TAB PO (21:00)
[2018-01-12] MEDS: AMOXICILLIN 500 MG CAP PO ×3 (05:42→22:16)
[2018-01-12] MEDS: PANTOPRAZOLE (EC) 40 MG TAB PO (05:42)
[2018-01-12 06:12] LABS: ADD MAN DIFF? NO
[2018-01-12 06:25] LABS: BASOPHILS % 0.2 % (0.0-2.0); EOSINOPHILS # 0.2 10^3/ul (0.0-0.5); EOSINOPHILS % 1.7 % (0.0-7.0); HEMATOCRIT 33.7 % (37.0-47.0); HEMOGLOBIN 10.9 g/dl (12.0-16.0); LYMPHOCYTES % 15.2 % (15.0-51.0); MEAN CORPUSCULAR HEMOGLOBIN 30.2 pg (29.0-33.0); MEAN CORPUSCULAR HGB CONC 32.3 g/dl (32.0-37.0); MEAN CORPUSCULAR VOLUME 93.4 fl (82.0-101.0); MEAN PLATELET VOLUME 10.5 fl (7.4-10.4); MONOCYTE # 1.5 10^3/ul (0.3-0.9); MONOCYTES % 11.3 % (0.0-11.0); NEUTROPHIL # 9.1 10^3/ul (1.6-7.5); NEUTROPHILS % 69.7 % (39.0-77.0); PLATELET COUNT 318 10^3/UL (140-415); RED BLOOD COUNT 3.61 10^6/ul (4.20-5.40); RED CELL DISTRIBUTION WIDTH 13.9 % (11.5-14.5)
[2018-01-12 06:42] LABS: LACTATE DEHYDROGENASE 419 IU/L (313-618)
[2018-01-12 06:47] LABS: PROTIME 23.2 Sec (11.9-14.9); PT RATIO 1.8
[2018-01-12 06:50] LABS: ALANINE AMINOTRANSFERASE 26 IU/L (13-69); ALBUMIN 2.7 g/dl (3.3-4.9); ALBUMIN/GLOBULIN RATIO 0.81; ALKALINE PHOSPHATASE 91 IU/L (42-121); ANION GAP 11 (8-16); ASPARTATE AMINO TRANSFERASE 19 IU/L (15-46); BILIRUBIN,INDIRECT 0.4 mg/dl (0-1.1); BILIRUBIN,TOTAL 0.4 mg/dl (0.2-1.3); BLOOD UREA NITROGEN 15 mg/dl (7-20); CALCIUM 8.5 mg/dl (8.4-10.2); CARBON DIOXIDE 29 mmol/L (21-31); CHLORIDE 102 mmol/L (97-110); CREATININE 0.53 mg/dl (0.44-1.00); GLUCOSE 114 mg/dl (70-220); POTASSIUM 3.9 mmol/L (3.5-5.1); SODIUM 138 mmol/L (135-144)
[2018-01-12] MEDS: NYSTATIN SUSP 5 ML CUP PO ×4 (08:20→20:38)
[2018-01-12] MEDS: BETHANECHOL 25 MG TAB PO ×3 (08:20→20:38)
[2018-01-12] MEDS: ASCORBIC ACID 500 MG TAB PO (08:20)
[2018-01-12] MEDS: FLUCONAZOLE 200 MG TAB PO (08:21)
[2018-01-12] MEDS: MULTIVITAMINS THERAPEUTIC TAB PO (08:21)
[2018-01-12] MEDS: DEXAMETHASONE 0.1% 5 ML OPH RIGHT EYE ×2 (08:21→20:42)
[2018-01-12] MEDS: DILTIAZEM (CD) 240 MG CAP PO ×2 (08:25→20:39)
[2018-01-12] MEDS: DORZOLAMIDE BOTH EYES ×2 (08:26→20:39)
[2018-01-12] MEDS: BALSAM PERU/CASTOR OIL 60 GM TUBE TOP ×2 (08:26→20:39)
[2018-01-12] MEDS: [UNRECOGNIZED DRUG - OTHER] BOTH EYES ×2 (08:26→20:39)
[2018-01-12] MEDS: TIMOLOL 0.5% BOTH EYES ×2 (08:26→20:39)
[2018-01-12] MEDS: ESTRADIOL 1 MG TAB PO (08:29)
[2018-01-12 15:05] LABS: IMMUNOGLOBULIN A 401 mg/dl (70-400); IMMUNOGLOBULIN M 109 mg/dl (40-230)
[2018-01-12 15:27] LABS: IMMUNOGLOBULIN G 905 mg/dl (700-1600)
[2018-01-12] MEDS: DOCUSATE SODIUM 100 MG CAP PO (16:13)
[2018-01-12] MEDS: WARFARIN 2 MG TAB PO (16:13)
[2018-01-12] MEDS: DIAZEPAM 5 MG TAB PO (20:42)
[2018-01-12 20:47] LABS: IRON 32 ug/dl (35-150)
[2018-01-12 20:56] LABS: % IRON SATURATION 14 % SAT (22-52); TOTAL IRON BINDING CAPACITY 227 ug/dl (241-421)
[2018-01-13 05:11] LABS: PROTEIN, TOTAL 4.9 g/dL (6.1-8.1)
[2018-01-13] MEDS: PANTOPRAZOLE (EC) 40 MG TAB PO (05:44)
[2018-01-13 06:31] LABS: WHITE BLOOD COUNT 11.6 10^3/ul (4.8-10.8)
[2018-01-13 06:31] LABS: ADD MAN DIFF? NO; BASOPHILS % 0.2 % (0.0-2.0); EOSINOPHILS # 0.3 10^3/ul (0.0-0.5); EOSINOPHILS % 2.9 % (0.0-7.0); HEMATOCRIT 31.7 % (37.0-47.0); HEMOGLOBIN 10.6 g/dl (12.0-16.0); LYMPHOCYTES # 1.9 10^3/ul (0.8-2.9); LYMPHOCYTES % 16.4 % (15.0-51.0); MEAN CORPUSCULAR HEMOGLOBIN 31.3 pg (29.0-33.0); MEAN CORPUSCULAR HGB CONC 33.4 g/dl (32.0-37.0); MEAN CORPUSCULAR VOLUME 93.5 fl (82.0-101.0); MEAN PLATELET VOLUME 10.4 fl (7.4-10.4); MONOCYTE # 1.2 10^3/ul (0.3-0.9); MONOCYTES % 10.4 % (0.0-11.0); PLATELET COUNT 300 10^3/UL (140-415); RED BLOOD COUNT 3.39 10^6/ul (4.20-5.40); RED CELL DISTRIBUTION WIDTH 13.6 % (11.5-14.5)
[2018-01-13 06:59] LABS: INR 2.16; PROTIME 24.6 Sec (11.9-14.9); PT RATIO 1.9
[2018-01-13] MEDS: [UNRECOGNIZED DRUG - OTHER] BOTH EYES ×2 (09:00→20:16)
[2018-01-13] MEDS: TIMOLOL 0.5% BOTH EYES ×2 (09:00→20:16)
[2018-01-13] MEDS: DORZOLAMIDE BOTH EYES ×2 (09:00→20:16)
[2018-01-13] MEDS: NYSTATIN SUSP 5 ML CUP PO ×4 (10:01→20:15)
[2018-01-13] MEDS: BETHANECHOL 25 MG TAB PO ×3 (10:02→20:16)
[2018-01-13] MEDS: ASCORBIC ACID 500 MG TAB PO (10:02)
[2018-01-13] MEDS: MULTIVITAMINS THERAPEUTIC TAB PO (10:02)
[2018-01-13] MEDS: DILTIAZEM (CD) 240 MG CAP PO ×2 (10:03→20:16)
[2018-01-13] MEDS: ESTRADIOL 1 MG TAB PO (10:03)
[2018-01-13] MEDS: BALSAM PERU/CASTOR OIL 60 GM TUBE TOP ×2 (10:05→20:18)
[2018-01-13] MEDS: DEXAMETHASONE 0.1% 5 ML OPH RIGHT EYE ×2 (10:05→20:18)
[2018-01-13] MEDS: WARFARIN 2 MG TAB PO (18:01)
[2018-01-13] MEDS: DIAZEPAM 5 MG TAB PO (20:17)
[2018-01-14] MEDS: PANTOPRAZOLE (EC) 40 MG TAB PO (05:40)
[2018-01-14 06:24] LABS: ADD MAN DIFF? NO
[2018-01-14 06:32] LABS: BASOPHILS % 0.2 % (0.0-2.0); EOSINOPHILS # 0.2 10^3/ul (0.0-0.5); EOSINOPHILS % 2.4 % (0.0-7.0); HEMATOCRIT 33.4 % (37.0-47.0); LYMPHOCYTES # 1.7 10^3/ul (0.8-2.9); LYMPHOCYTES % 18.6 % (15.0-51.0); MEAN CORPUSCULAR HEMOGLOBIN 31.1 pg (29.0-33.0); MEAN CORPUSCULAR HGB CONC 32.9 g/dl (32.0-37.0); MEAN CORPUSCULAR VOLUME 94.4 fl (82.0-101.0); MEAN PLATELET VOLUME 10.5 fl (7.4-10.4); MONOCYTE # 0.9 10^3/ul (0.3-0.9); MONOCYTES % 10.5 % (0.0-11.0); NEUTROPHILS % 67.4 % (39.0-77.0); PLATELET COUNT 331 10^3/UL (140-415); RED BLOOD COUNT 3.54 10^6/ul (4.20-5.40); RED CELL DISTRIBUTION WIDTH 13.7 % (11.5-14.5)
[2018-01-14 06:32] LABS: WHITE BLOOD COUNT 8.9 10^3/ul (4.8-10.8)
[2018-01-14 06:48] LABS: PROTIME 25.9 Sec (11.9-14.9)
[2018-01-14 07:10] LABS: ANION GAP 8 (8-16); BLOOD UREA NITROGEN 12 mg/dl (7-20); CALCIUM 8.3 mg/dl (8.4-10.2); CARBON DIOXIDE 28 mmol/L (21-31); CHLORIDE 104 mmol/L (97-110); CREATININE 0.49 mg/dl (0.44-1.00); GLUCOSE 110 mg/dl (70-220); POTASSIUM 3.5 mmol/L (3.5-5.1); SODIUM 136 mmol/L (135-144)
[2018-01-14 08:11] LABS: ALPHA-1-GLOBULINS 0.5 g/dL (0.2-0.3); ALPHA-2-GLOBULINS 0.8 g/dL (0.5-0.9); BETA 2 GLOBULINS 0.4 g/dL (0.2-0.5); BETA GLOBULINS 0.4 g/dL (0.4-0.6); GAMMA GLOBULINS 0.9 g/dL (0.8-1.7)
[2018-01-14] MEDS: DILTIAZEM (CD) 240 MG CAP PO (09:00)
[2018-01-14] MEDS: MULTIVITAMINS THERAPEUTIC TAB PO (09:16)
[2018-01-14] MEDS: BALSAM PERU/CASTOR OIL 60 GM TUBE TOP (09:16)
[2018-01-14] MEDS: NYSTATIN SUSP 5 ML CUP PO ×3 (09:16→17:00)
[2018-01-14] MEDS: ESTRADIOL 1 MG TAB PO (09:17)
[2018-01-14] MEDS: BETHANECHOL 25 MG TAB PO ×2 (09:17→13:31)
[2018-01-14] MEDS: DEXAMETHASONE 0.1% 5 ML OPH RIGHT EYE (09:18)
[2018-01-14] MEDS: [UNRECOGNIZED DRUG - OTHER] BOTH EYES (09:18)
[2018-01-14] MEDS: TIMOLOL 0.5% BOTH EYES (09:18)
[2018-01-14] MEDS: DORZOLAMIDE BOTH EYES (09:18)
[2018-01-14] MEDS: WARFARIN 2 MG TAB PO (17:00)
== END 2018-01-14 18:01 | DRG 308 ==
LOC: 6WM 12-22 11:12 → E/R 12:40 → MS4 14:04
PROC: 3E0U33Z Introduction of Anti-inflammatory into Joints, Percutaneous Approach (ICD-10-PCS; principal; 2018-01-03)
PROC: 3E0U3BZ Introduction of Anesthetic Agent into Joints, Percutaneous Approach (ICD-10-PCS; 2018-01-03)
DX: I48.2 Chronic atrial fibrillation (principal); J18.9 Pneumonia, unspecified organism; S22.080A Wedge compression fracture of T11-T12 vertebra, initial encounter for closed fracture; B37.0 Candidal stomatitis; N39.0 Urinary tract infection, site not specified; J98.11 Atelectasis; W18.11XA Fall from or off toilet without subsequent striking against object, initial encounter; D50.9 Iron deficiency anemia, unspecified; D72.829 Elevated white blood cell count, unspecified; E78.5 Hyperlipidemia, unspecified; E87.6 Hypokalemia; I11.0 Hypertensive heart disease with heart failure; I50.9 Heart failure, unspecified; K59.00 Constipation, unspecified; M47.9 Spondylosis, unspecified; M19.90 Unspecified osteoarthritis, unspecified site; M81.0 Age-related osteoporosis without current pathological fracture; M19.072 Primary osteoarthritis, left ankle and foot; M25.572 Pain in left ankle and joints of left foot; M25.571 Pain in right ankle and joints of right foot; R13.12 Dysphagia, oropharyngeal phase; R09.02 Hypoxemia; R10.9 Unspecified abdominal pain; R53.1 Weakness; R33.9 Retention of urine, unspecified; R91.1 Solitary pulmonary nodule; R60.0 Localized edema; B95.2 Enterococcus as the cause of diseases classified elsewhere; Z74.09 Other reduced mobility; Z90.710 Acquired absence of both cervix and uterus; Z79.01 Long term (current) use of anticoagulants
CPT/HCPCS: 36415; 70551; 71045; 71250; 72131; 72141; 72148; 73610; 73630-LT; 74018; 74177; 74230; 80048; 80053; 81001; 81003; 81270; 82270; 82378; 82550; 82553; 82607; 82728; 82746; 82784; 83519; 83540; 83615; 83735; 84155; 84165; 84443; 84484; 84560; 85025; 85610; 85730; 86320; 87040; 87075; 87086; 88184; 88185; 92526; 92610; 92611; 93005; 93306; 93970; 96374; 96375; 97110; 97116; 97162; 97530; 99291-25